=== PATIENT | female | born 1965 | race Caucasian/White ===

== ENCOUNTER 2018-05-24 08:16 | Outpatient (CLI) | payer OTHER, SELFPAY ==
--- NOTE | 2018-05-24 08:19 | DI.RAD_ITS ---
SYMPTOM/DIAGNOSIS: CERVICALGIA, M54.2, NECK PAIN CERVICAL SPINE: Odontoid, AP, lateral and bilateral oblique views. There are no priors for comparison. The odontoid is intact. There is mild reversal of the normal cervical lordosis centered at the C 3-4 level. There is disc space narrowing from C 3-4 through C 5-6. Endplate osteophytes are present throughout the cervical spine. There is moderate narrowing of the neural foramen on the right at C 3-4 and C 6-7 and mild narrowing at C 4-5 and C 5-6. On the left, there is mild neural foraminal narrowing at C 4-5 and C 6-7 with moderate neural foraminal encroachment at C 5-6. No acute fractures or subluxations are seen. The bones are normally mineralized. IMPRESSION: Moderately severe degenerative changes in the cervical spine.
== END 2018-05-24 08:36 ==
DX: M54.2 Cervicalgia (principal); M50.321 Other cervical disc degeneration at C4-C5 level; M50.322 Other cervical disc degeneration at C5-C6 level; M50.323 Other cervical disc degeneration at C6-C7 level
CPT/HCPCS: 72050

== ENCOUNTER 2018-10-20 19:43 | Outpatient (REF) | payer OTHER, SELFPAY | END 2018-10-20 20:03 | LOC: LBN 19:43 | DX: N89.8 Other specified noninflammatory disorders of vagina (principal) | CPT/HCPCS: 87480; 87510; 87660 ==

== ENCOUNTER 2018-12-16 00:27 | Outpatient (CLI) | payer OTHER, SELFPAY ==
--- NOTE | 2018-12-16 12:12 | DI.MAMMO_ITS ---
SYMPTOMS/DIAGNOSIS: SCREENING, Z12.31 MAMMOGRAM: Mammograms were interpreted according to the usual protocol including computer analysis with CAD system, tomosynthesis and C view imaging. The breast tissue is largely composed of fatty tissue. There is no mass. There are no suspicious calcifications. A biopsy marker is identified in the inferolateral portion of the left breast. SUMMARY: No evidence of malignancy, Category I, yearly screening mammography is recommended. Breast density Category B. SA ASSESSMENT OF FINDINGS: Negative. Category 1. Patient will receive a letter notifying them of these results. BI-RADS category B. There are scattered areas of fibroglandular density.
[2018-12-16 13:56] LABS: ALT 44 U/L (12-78); AST 24 U/L (15-37); Albumin 3.9 g/dL (3.4-5.0); Alkaline Phosphatase 92 U/L (46-116); BUN 10 mg/dL (7-18); Bilirubin, Total 0.9 mg/dL (0.2-1.0); CREATININE 0.66 mg/dL (0.55-1.02); Calcium 9.4 mg/dL (8.5-10.1); Calculated LDL 144 mg/dL; Chloride 102 mmol/L (98-107); Cholesterol 213 mg/dL (50-200); Glucose 86 mg/dL (70-100); HDL Cholesterol 54 mg/dL (40-60); Potassium 4.2 mmol/L (3.5-5.1); Sodium 139 mmol/L (136-145); TSH (W/Ref FT4) 1.56 uIU/mL (0.36-3.74); Total Protein 7.3 g/dL (6.4-8.2); Triglyceride 79 mg/dL (30-150)
== END 2018-12-16 00:47 ==
DX: F17.200 Nicotine dependence, unspecified, uncomplicated (principal); F41.9 Anxiety disorder, unspecified; I10 Essential (primary) hypertension; J45.909 Unspecified asthma, uncomplicated; K44.9 Diaphragmatic hernia without obstruction or gangrene; M54.2 Cervicalgia; R63.8 Other symptoms and signs concerning food and fluid intake; Z00.00 Encounter for general adult medical examination without abnormal findings; Z12.31 Encounter for screening mammogram for malignant neoplasm of breast; B02.9 Zoster without complications; G40.909 Epilepsy, unspecified, not intractable, without status epilepticus; M79.7 Fibromyalgia; Z13.220 Encounter for screening for lipoid disorders; R53.83 Other fatigue
CPT/HCPCS: 36415; 77063; 77067; 80053; 80061; 83721; 84443

== ENCOUNTER 2019-11-11 01:45 | Outpatient (CLI) | payer OTHER, SELFPAY ==
[2019-11-11 09:43] LABS: ALT 40 U/L (14-59); AST 25 U/L (15-37); Albumin 3.8 g/dL (3.4-5.0); Alkaline Phosphatase 101 U/L (46-116); Anion Gap 8.5 mmol/L (3-11); BUN 7 mg/dL (7-18); Bilirubin, Total 0.5 mg/dL (0.2-1.0); CO2 30.5 mmol/L (21.0-32.0); CREATININE 0.78 mg/dL (0.55-1.02); Calcium 9.6 mg/dL (8.5-10.1); Calculated LDL 117 mg/dL (<100); Chloride 99 mmol/L (98-107); Cholesterol 194 mg/dL (<200); Glucose 110 mg/dL (74-106); HDL Cholesterol 38 mg/dL (40-60); Potassium 4.5 mmol/L (3.5-5.1); Sodium 138 mmol/L (136-145); Total Protein 7.4 g/dL (6.4-8.2); Triglyceride 197 mg/dL (<150)
== END 2019-11-11 02:05 ==
DX: F17.200 Nicotine dependence, unspecified, uncomplicated (principal); F41.9 Anxiety disorder, unspecified; I10 Essential (primary) hypertension; R63.8 Other symptoms and signs concerning food and fluid intake
CPT/HCPCS: 36415; 80053; 80061

== ENCOUNTER 2019-12-26 09:18 | Outpatient (CLI) | payer OTHER, SELFPAY ==
[2019-12-27 22:12] LABS: SARS-CoV-2 RNA Undetected (Undetected); SARS-CoV-2 Specimen Source Nasopharynx
== END 2019-12-26 09:38 ==
DX: Z11.59 Encounter for screening for other viral diseases (principal)
CPT/HCPCS: U0003

== ENCOUNTER 2020-01-10 01:00 | Outpatient (CLI) | payer OTHER, SELFPAY ==
--- NOTE | 2020-01-10 06:30 | DI.MAMMO_ITS ---
EXAM: MG MAMMO SCREENING CLINICAL HISTORY: screening,Z12.39 TECHNIQUE: Mammograms were interpreted according to the usual protocol including computer analysis w [employer] CAD system, tomosynthesis and C-view imaging. COMPARISON: FINDINGS: The breasts are of moderate density with fairly symmetrical distribution of fibroglandular tissue. N o dominant mass or clumped microcalcification is identified in either breast. The current examinatio n is compared with prior examinations including December 2018 and there has been no gross interval thompson ge in appearance in comparison with the prior studies. IMPRESSION: No specific evidence of malignancy at this time. Routine screening examinations are suggested at yea rly intervals in this age group according to the ACS ACR guidelines. Category: BI-RADS Cat 1 - Negative Breast Density - Category B - Scattered areas of fibroglandular density
== END 2020-01-10 01:20 ==
DX: Z12.31 Encounter for screening mammogram for malignant neoplasm of breast (principal); R92.2 Inconclusive mammogram
CPT/HCPCS: 77063; 77067

== ENCOUNTER 2020-02-06 09:16 | Day surgery (SDC) | payer OTHER, SELFPAY ==
--- NOTE | 2020-02-06 07:02 | COLE_ITS ---
Date of service: 02/06/20 Time of Service: 10:13 Colonoscopy Report Date of procedure: 02/06/20 Pre-op diagnosis general: Hx of colon polyps Post-op diagnosis procedure note: other (polyps) Procedure: Colonoscopy with polypectomy Surgeon: Priya Mark Anesthesia proc note operative: other (General/ASA 3/Hunter Foy CRNA) Estimated blood loss (mL): 3 Pathology: other (Aascending, transverse x2, descending x2, sigmoid x2 and rectal polyps x2) Complications: None Disposition: same day Indications: The patient is here for Colonoscopy pre-op. Her last screening was in 2014, which was remarkable for tubular adenoma. She reports a family history of colon cancer in her father and brother.She has no family history of colon cancer. She has not had any bowel habit changes. -Discussed colonoscopy bowel prep as well as the procedure. Discussed possible complications of the procedure to include bleeding, pain, perforation, missed small lesion/polyp, sore throat, aspiration and adverse reaction to the medications. Questions were answered to patient?s satisfaction. No guarantees were implied or given. Prep: Miralax/Dulcolax Procedure Start Time: :13 Procedure End Time: 10:43 Retraction Time: 23 minutes Findings: multiple small polyps Procedure Description: After informed consent was obtained the patient was taken to the procedure room and placed in a left decubitous position. Monitors were applied and a time out was done. The patients name, date of , procedure, allergies to medications and metal in their body was reviewed. The patient was then sedated. Once sedated and comfortable a rectal exam was done. E xternal exam was normal. Internal exam revealed a normal sphincter tone and no palpable masses. The scope was then introduced and retro-flexed. No internal hemorrhoids were identified. The scope was then advanced to the cecum without difficulty. The ileocecal valve and appendiceal orifice were identified. The prep was adequate. The scope was then slowly retracted over 23 minutes back into the rectum. Polyps were removed with cold forceps in the ascending colon x1, Transverse colon x2, descending colon x2, sigmoid colon x2. There were no diverticula noted. The scope was removed and the patient was woken up and taken back to Same day surgery in stable condition. The patient tolerated the procedure well and there were no immediate complications. Follow up: The patient should follow up in 3-5 years unless they develop changes in bowel habits or other new gastrointestinal complaints.
--- NOTE | 2020-02-06 07:04 | W.PM.DSUDISC ---
Discharge Plan Disposition Patient Disposition: HOME Condition: Good Discharge Details Reason For Visit: Colonoscopy Attending Provider: Priya Mark Primary Care Provider: Cammie Barry Home Meds and New Rx's Prescriptions: Continued loratadine 10 mg tablet 10 mg PO DAILY Qty: 90 RF: 3 albuterol sulfate [ProAir HFA] 90 mcg/actuation HFA aerosol inhaler 2 puff Inhalation Q6H PRN Qty: 17 RF: 3 gabapentin 800 mg tablet 800 mg PO QHS Qty: 60 RF: 5 metoprolol succinate 100 mg tablet extended release 24 hr 100 mg PO QHS Qty: 90 RF: 3 Advair HFA 115-21 mcg/actuation HFA aerosol inhaler 2 puff Inhalation BID Qty: 24 RF: 4 fluoxetine 40 mg capsule 40 mg PO DAILY Qty: 90 RF: 3 hydrochlorothiazide 25 mg tablet 25 mg PO DAILY Qty: 90 RF: 3 metoprolol succinate 50 mg tablet extended release 24 hr 50 mg PO DAILY Qty: 90 RF: 3 trazodone 50 mg tablet 25 mg PO HS PRN Qty: 45 RF: 3 Discontinued polyethylene glycol 3350 17 gram/dose powder 238 g PO ONCE Qty: 238 RF: 0 bisacodyl [Dulcolax (bisacodyl)] 5 mg tablet,delayed release (DR/EC) 5 mg PO ONCE Qty: 4 RF: 0 Discharge Instructions Instructions: Colorectal Polyps (DC) Additional Instructions: Findings: 9 polyps were removed Follow up: 3-5 years Please call if you develop: fevers >101.5 Nausea or Vomiting Abdominal pain that is not transient DAY SURGERY UNIT POST ENDOSCOPY INSTRUCTIONS 1. Because there will be medication in your system for the next 24 hours, you may feel a little sleepy. Your coordination will be affected. Therefore: a. Do not drive or operate dangerous equipment for 24 hours. b. Do not drink alcohol beverages for 24 hours (not even beer). c. Plan to go home and rest for the day. 2. Generally there are no restrictions on your activity after a day or so has gone by, but you may feel a bit fatigued for a few days. 3 After you arrive home you may have a light meal and return to a normal diet as you can tolerate it without feeling sick to your stomach. 4. After surgery, you may feel pain or discomfort. This should be only transient, but if it persists please contact your doctor. 5. If there are any questions regarding the findings of your procedure, please feel free to contact your doctor. 6. If you are unable to contact your doctor with a problem, contact the hospital at [phone]. 7. Continue all your regular medications unless directed otherwise. I understand the above instructions and have no questions. Signature of Patient or Responsible Adult Escort Date/Time Name of Responsible Adult Escort Signature of Nurse Date/Time Activity:: Activity as Tolerated Diet:: As Tolerated Discharge Orders Discharge Orders: Discharge Order (Routine); Ordered 02/06/20 Ordered By: Priya Mark
[2020-02-06 09:20] VITALS: BP 171/95; PULSE 59; RESP 16; TEMP 36.4; O2SAT 95
[2020-02-06] MEDS: Lactated Ringers 1,000 ML 80 ML IV (09:50)
--- NOTE | 2020-02-06 10:24 | BOWEL_PTH ---
PATIENT: Yaz Michel LOC: [facility] U#:[id number] AGE/SX: 54/F ROOM: RE02/06/[address]: Priya Mark MD : 1965 BED: DIS: 02/06/2020 SPEC #: [id number] RECD: 02/06/20 12:35 STATUS: HENRY REQ #: [id number] ANDRES: 02/06/20 10:[address]: Priya Mark DEPT: Surgical Specimen RECD BY: Cinthia Hair ENTERED: 02/06/20 12:37 SP TYPE: Bowel OTHR DR: Cammie Barry APRN Tissues: 1 - BIOPSY BOWEL 2 - BIOPSY BOWEL 3 - BIOPSY BOWEL 4 - BIOPSY BOWEL 5 - BIOPSY BOWEL Procedures: GROSS AND MICRO LEVEL 4 Comments: [id number]
[2020-02-06 11:20] VITALS: BP 149/85; PULSE 60; RESP 18; TEMP 36; O2SAT 99
== END 2020-02-06 11:30 | disposition home or self-care (01) ==
PROVIDERS: Visit Provider Surgery
PROC: 0DJD8ZZ Inspection of Lower Intestinal Tract, Via Natural or Artificial Opening Endoscopic (ICD-10-PCS; CPT 45378; principal; 2020-02-06 10:30)
DX: Z12.11 Encounter for screening for malignant neoplasm of colon (principal); Z86.010 Personal history of colon polyps; D12.2 Benign neoplasm of ascending colon; D12.3 Benign neoplasm of transverse colon; K62.1 Rectal polyp; K63.5 Polyp of colon
CPT/HCPCS: 45380; 88305; J2001; J2704

== ENCOUNTER 2021-01-01 16:16 | Outpatient (REF) | payer OTHER, SELFPAY ==
--- NOTE | 2021-01-01 15:30 | PAPFT_PTH ---
PATIENT: Yaz Michel LOC: [facility] U#:[id number] AGE/SX: 55/F ROOM: RE01/01/[address]: Cammie Barry APRN : 1965 BED: DIS: 01/01/2021 SPEC #: [id number] RECD: 01/02/21 12:52 STATUS: HENRY REMilton #: [id number] ANDRES: 01/01/21 15:[address]: Cammie Barry DEPT: [facility] Cytology RECD BY: Cinthia Hair Tissues: 1 - CX/ENDOCX FOR PAP SMEARS Procedures: PAP THIN PREP/UVM Screening HPV DNA PROBE Comments: [id number] (CHLAMYDIA/GC)
[2021-01-03 15:08] LABS: Chlamydia Result Negative (Negative); GC Result Negative (Negative)
== END 2021-01-01 16:17 | disposition home or self-care (01) ==
LOC: LBN 16:16
DX: Z12.4 Encounter for screening for malignant neoplasm of cervix (principal); Z11.3 Encounter for screening for infections with a predominantly sexual mode of transmission; Z11.51 Encounter for screening for human papillomavirus (HPV)
CPT/HCPCS: 87491; 87591; 88142; 87624

== ENCOUNTER 2021-11-19 18:22 | Outpatient (REF) | payer OTHER, SELFPAY ==
--- NOTE | 2021-11-19 15:20 | PAPFT_PTH ---
PATIENT: Yaz Michel LOC: [facility] U#:[id number] AGE/SX: 56/F ROOM: RE11/19/[address]: Camime Barry APRN : 1965 BED: DIS: 11/19/2021 SPEC #: [id number] RECD: 11/20/21 08:48 STATUS: HENRY [place] #: [id number] ANDRES: 11/19/21 15:[address]: Cammie Barry DEPT: [facility] Cytology RECD BY: Pauline Harrison Tissues: 1 - CX/ENDOCX FOR PAP SMEARS Procedures: PAP THIN PREP/UVM Screening HPV DNA PROBE Comments: [id number]
== END 2021-11-19 18:23 | disposition home or self-care (01) ==
LOC: LBN 18:22
DX: Z12.4 Encounter for screening for malignant neoplasm of cervix (principal); Z11.51 Encounter for screening for human papillomavirus (HPV)
CPT/HCPCS: 88142; 87624

== ENCOUNTER 2021-12-11 03:50 | Outpatient (CLI) | payer OTHER, SELFPAY ==
[2021-12-11 12:47] LABS: ALT 31 U/L (14-59); AST 21 U/L (15-37); Albumin 3.7 g/dL (3.4-5.0); Alkaline Phosphatase 91 U/L (46-116); Anion Gap 7.7 mmol/L (3-11); BUN 14 mg/dL (7-18); Bilirubin, Total 0.5 mg/dL (0.2-1.0); CO2 31.3 mmol/L (21.0-32.0); CREATININE 0.8 mg/dL (0.55-1.02); Calcium 9.4 mg/dL (8.5-10.1); Calculated LDL 132 mg/dL (<100); Chloride 100 mmol/L (98-107); Cholesterol 196 mg/dL (<200); Glucose 101 mg/dL (74-106); HDL Cholesterol 52 mg/dL (40-60); Potassium 3.9 mmol/L (3.5-5.1); Sodium 139 mmol/L (136-145); Total Protein 7.8 g/dL (6.4-8.2); Triglyceride 63 mg/dL (<150)
== END 2021-12-11 03:51 | disposition home or self-care (01) ==
LOC: LOS 03:50
DX: Z00.00 Encounter for general adult medical examination without abnormal findings (principal); E78.5 Hyperlipidemia, unspecified; I10 Essential (primary) hypertension; I47.1 Supraventricular tachycardia; R73.01 Impaired fasting glucose; F41.8 Other specified anxiety disorders
CPT/HCPCS: 36415; 80053; 80061; 84443

== ENCOUNTER 2022-12-16 03:41 | Outpatient (CLI) | payer SELFPAY ==
--- NOTE | 2022-12-16 07:00 | DI.CTLCSR_ITS ---
Exam(s) CT CHEST LUNG CANCER SCREEN EXAM: CT CHEST LUNG CANCER SCREEN CLINICAL HISTORY: Screening for lung cancer, CURRENT SMOKER, F17.200 TECHNIQUE: Imaging Protocol: Axial computed tomography images with coronal and sagittal reformatted images were created and reviewed. Low dose screening protocol. COMPARISON: CT CHEST FOR PULMONARY EMBOLUS from 11/19/2010 FINDINGS: Tracheobronchial tree: No bronchiectasis or mucus plugging.. Mediastinum and Susan: No dominant adenopathy or fluid collection. Pulmonary parenchyma: Scattered areas of atelectasis and/or scarring. No consolidation or dominant m easurable mass. Mild emphysematous changes. Lung Nodules: None. Pleura: No effusion. No pneumothorax. Heart: The heart is not dilated. Mild coronary artery calcifications are seen. Aorta: Thoracic aorta non-dilated.Minimal atherosclerotic changes. Upper abdomen: Unremarkable. Bones: Minimal compression fracture of the superior endplate of T3. Degenerative disc changes throug hout with prominent endplate osteophytes. Soft Tissues: Unremarkable. IMPRESSION: No suspicious pulmonary nodules. Lung RADS Cat 1 - Negative: No nodules and definitely benign nodules Lung-RADS 1.0 CATEGORIES: Category 0 - Prior chest CT exam(s) being located for comparison. Category 1 - Annual screening in 12 months. No nodules or definitely benign nodules. Category 2 - Annual screening in 12 months. Benign appearance. Nodules with low likelihood of becomin g active cancer. Category 3 - 6-month follow-up. Probably benign. Short-term follow-up suggested. Nodules with low lik elihood of becoming active cancer. Category 4A - 3-month follow-up and CT/PET if >8 mm in size. Suspicious finding. Findings which requi re additional testing. Category 4B - Findings which require additional testing and tissue sampling. Category 4X - Category 3 or 4 nodules with additional features or imaging findings that increases the suspicion of malignancy. Modifier S- Potentially clinically significant findings (non lung cancer) RADIATION DOSE DELIVERED: 77.37mGy.cm Total DLP DATA REPOSITORY: All CT scans at this facility are submitted to the National Radiology Data Registry (NRDR) Dose Index Registry (DIR) with the [employer] (ACR). RADIATION OPTIMIZATION: All CT scans at this facility use at least one of these dose optimization te chniques: automated exposure control; mA and/or kV adjustment per patient size (includes targeted exa ms where dose is matched to clinical indication); or iterative reconstruction.
--- NOTE | 2022-12-16 08:05 | DI.MAMMO_ITS ---
Exam(s) MAMMO SCREENING EXAM: MAMMO SCREENING CLINICAL HISTORY: screening, Z12.39 TECHNIQUE: Mammograms were interpreted according to the usual protocol including computer analysis w [employer] CAD system, tomosynthesis and C-view imaging. COMPARISON: 2014 through 2019 FINDINGS: The breasts are composed of scattered fibroglandular densities, Breast Density category B. No suspicious masses or suspicious microcalcifications are seen. No skin thickening or abnormal axillary lymph nodes are seen. A biopsy marker clip is noted in the l eft breast. In the lateral, central left breast, there is a new or increasing nodule. Spot compression views and ultrasound requested further evaluation. There has been no change in the appearance of the right br east. IMPRESSION: BI-RADS Category 0 - Assessment Incomplete: Need additional imaging evaluation Breast Density - Category B, scattered fibroglandular densities. A negative radiographic report should not delay biopsy if a dominant or clinically suspicious mass is present. Up to ten percent of cancers are not identified on mammography. A negative report may reinforce clinical impression. Adenosis and dense breasts may obscure an underlying neoplasm. False positive reports average 6 to 10%. Patient will receive a letter notifying them of these results.
== END 2022-12-16 04:01 ==
PROVIDERS: PCP Nurse Practitioner Family; Visit Provider Nurse Practitioner Family
DX: Z12.39 Encounter for other screening for malignant neoplasm of breast (principal); F17.210 Nicotine dependence, cigarettes, uncomplicated; Z12.2 Encounter for screening for malignant neoplasm of respiratory organs
CPT/HCPCS: 71271; 77063; 77067

== ENCOUNTER → 2022-12-23 03:05 | Outpatient (CLI) | payer SELFPAY ==
--- NOTE | 2022-12-23 | DI.MAMMO_ITS ---
Exam(s) MG MAMMO SCREEN CALL BACK UNI US BREAST LT LIMITED EXAM: MG MAMMO SCREEN CALL BACK UNI and U/S breast LT limited CLINICAL HISTORY: F/U MAMMO, NEW/INCREASING NODULE LT BREAST. TECHNIQUE: Craniocaudal and mediolateral oblique Full Field Digital Mammography views of the left br east with Computer Aided Diagnosis followed by Tomosynthesis and left breast ultrasound. COMPARISON: Comparison is made with prior examinations. FINDINGS: Mammography/Tomosynthesis: Masses/Architectural Distortion: There again seen a couple of nodular opacities in the upper outer qu adrant of the left breast. No associated microcalcifications or spiculation is seen. Several of the se are unchanged compared to the prior examination. Microcalcifictions: No suspicious pleomorphic-type are seen. Skin Thickening/Nipple Retraction: None. Limited left breast US: Echotexture: Normal appearance of the glandular tissue. Shadowing: No suspicious foci. Cyst: None. Solid lesions: None seen. Ductal dilation: None. IMPRESSION: 1. No definite evidence of malignancy is noted. 2. A follow-up mammogram in 6 months is recommended for re-evaluation. 3. The findings were discussed with the patient on the date of the examination. BI-RADS Category 3 - 6 month - Probably Benign Finding: Recommend follow-up imaging in 6 months Breast Density - Category B - Scattered areas of fibroglandular density Breast density Category C or D implies that the patient has dense breast tissue. Dense breast tissue can make it harder to find cancer on a mammogram. Dense breast tissue is also associated with an incr eased risk of breast cancer. This information about the result of the mammogram report was provided to the patient to raise their awareness. Use this report when you speak with the patient about their risks for breast cancer, which includes their family history. At that time, you may recommend additional screening tests (Ultrasoun d or MRI) as these tests may add significant information. A negative radiographic report should not delay biopsy if a dominant or clinically suspicious mass is present. Up to ten percent of cancers are not identified on mammography. A negative report may reinforce clinical impression. Adenosis and dense breasts may obscure an underlying neoplasm. False positive reports average 6 to 10%. Patient will receive a letter notifying them of these results.
== END ==
PROVIDERS: PCP Nurse Practitioner Family; Visit Provider Family Medicine
DX: Z12.31 Encounter for screening mammogram for malignant neoplasm of breast (principal); R92.8 Other abnormal and inconclusive findings on diagnostic imaging of breast
CPT/HCPCS: 76642; 77063; 77067

== ENCOUNTER 2023-06-04 21:35 | Emergency (ER) | payer SELFPAY ==
[2023-06-04] VITALS (18 sets, daily range): BP systolic 110–173; BP diastolic 70–100; PULSE 83–93; RESP 14–25; TEMP 37–38.1; O2SAT 87–98
--- NOTE | 2023-06-04 21:45 | RT.EKG_ITS ---
APPROVED REPORT Exam: Resting ECG Reason for Exam: short of breath Patient Location: E HR:83 bpm ECG Measurements Heart Rate [address] 159 P 67 QRSd 139 QRS -16 QT 407 T 114 QTc 478 Conclusion Sinus rhythm normal axis LBBB
--- NOTE | 2023-06-04 21:45 | DI.RAD_ITS ---
Exam(s) XR CHEST 2V PA LATERAL EXAM: XR CHEST 2V PA LATERAL CLINICAL HISTORY: sob, fever. TECHNIQUE: 2D digital imaging was performed. COMPARISON: CT CT CHEST LUNG CANCER SCREEN from 12/16/2022 FINDINGS: 2 views: Heart size is normal. The mediastinum is not widened. Lungs are clear. No infiltrates nor pleural effusions. IMPRESSION: No acute pulmonary findings. DATA REPOSITORY: RADIATION DOSE DELIVERED:
--- NOTE | 2023-06-04 21:55 | W.ED.GENAD ---
HPI General Mode of arrival: ambulatory. Date/Time Provider Initiated Documentation: 06/04/23 21:52. Limitations to Documentation: no limitations. Information obtained by: patient. HPI Narrative: This is a 58-year-old female patient with history of tobacco abuse ongoing obstructive sleep apnea not compliant with CPAP, previous home oxygen which she no longer has due to cost who presents to the emergency department for evaluation of shortness of breath cough body aches and chills that have been ongoing for the past 2 weeks. She states her symptoms have waxed and waned but today feels they have worsened again. She is using her rescue inhaler. Related Data Home Medications Medication Instructions Recorded Confirmed estradiol 0.01% (0.1 mg/gram) 1 g vaginal DAILY #42.5 grams 06/06/22 11/24/22 vaginal cream fluoxetine 40 mg capsule 40 mg PO DAILY #90 tab-caps 06/06/22 11/24/22 gabapentin 800 mg tablet 800 mg PO QHS #90 tab-caps 06/06/22 11/24/22 hydrochlorothiazide 12.5 mg tablet 12.5 mg PO DAILY #90 tab-caps 06/06/22 11/24/22 metoprolol succinate 100 mg 100 mg PO QHS #90 tabs 06/06/22 11/24/22 tablet,extended release 24 hr trazodone 50 mg tablet 25 mg (1/2 x 50 mg) PO HS PRN #45 06/06/22 11/24/22 tab-caps albuterol sulfate 90 mcg/actuation See Rx Instructions .Route 12/17/22 aerosol inhaler .COMPLEX #17 grams Inhaler, Assist Devices [Pocket 1 ea miscellaneous DIRECTED ##0 06/04/23 Chamber] benzonatate 100 mg capsule 100 mg PO TID PRN #14 caps 06/04/23 budesonide-formoterol HFA 80 2 puff inhalation BID #0 grams 06/04/23 mcg-4.5 mcg/actuation aerosol inhaler (Symbicort) prednisone 20 mg tablet 40 mg (2 x 20 mg) PO DAILY #10 tabs 06/04/23 Previous Rx's Medication Instructions Recorded estradiol 0.01% (0.1 mg/gram) 1 g vaginal DAILY #42.5 grams 06/06/22 vaginal cream fluoxetine 40 mg capsule 40 mg PO DAILY #90 tab-caps 06/06/22 gabapentin 800 mg tablet 800 mg PO QHS #90 tab-caps 06/06/22 hydrochlorothiazide 12.5 mg tablet 12.5 mg PO DAILY #90 tab-caps 06/06/22 metoprolol succinate 100 mg 100 mg PO QHS #90 tabs 06/06/22 tablet,extended release 24 hr trazodone 50 mg tablet 25 mg (1/2 x 50 mg) PO HS PRN #45 06/06/22 tab-caps albuterol sulfate 90 mcg/actuation See Rx Instructions .Route 12/17/22 aerosol inhaler .COMPLEX #17 grams Inhaler, Assist Devices [Pocket 1 ea miscellaneous DIRECTED ##0 06/04/23 Chamber] benzonatate 100 mg capsule 100 mg PO TID PRN #14 caps 06/04/23 budesonide-formoterol HFA 80 2 puff inhalation BID #0 grams 06/04/23 mcg-4.5 mcg/actuation aerosol inhaler (Symbicort) prednisone 20 mg tablet 40 mg (2 x 20 mg) PO DAILY #10 tabs 06/04/23 Allergies Allergy/AdvReac Type Severity Reaction Status Date / Time Penicillins Allergy Intermediate THROAT Verified 11/24/22 13:45 TIGHTNES iron AdvReac Nausea Verified 11/24/22 13:45 shellfish Allergy Severe Anaphylaxis Uncoded 11/24/22 13:47 General Stated Complaint: SOB IVETTE: 3 Review of Systems All systems reviewed & are unremarkable except as noted in HPI and below Exam Narrative Exam Narrative: Overweight chronically ill-appearing female older than stated age. Head is atraumatic oral mucosa is slightly dry no exudate neck is supple with no JVD eyes nonicteric noninjected. Respirations slightly labored with activity does have a dry hacking cough breath sounds with expiratory wheeze no rhonchi appreciated. Fair air exchange but diminished. Cardiovascular regular rate and rhythm her abdomen benign her extremities are without edema she has no unilateral edema or calf pain. Moves all extremities well. Her skin is pink warm dry well-perfused there is no rashes or lesions noted. Course Vital Signs Vital signs: Vital Signs Temperature 38.1 C H 06/04/23 21:43 Pulse 91 H 06/04/23 21:43 Respiratory Rate 22 06/04/23 21:43 Blood Pressure 173/100 H 06/04/23 21:43 Pulse Oximetry 87 L 01/18/24 21:43 Temperature 38.1 C H 06/04/23 21:43 Pulse 91 H 06/04/23 21:43 Respiratory Rate 22 06/04/23 21:46 Respiratory Effort Short of Breath 06/04/23 21:46 Respiratory Depth Deep 06/04/23 21:46 Respiratory Pattern Tachypnea 06/04/23 21:46 Blood Pressure 173/100 H 06/04/23 21:43 Pulse Oximetry 87 L 06/04/23 21:43 Oxygen Delivery Method Room Air 06/04/23 21:43 Oxygen Flow Rate 0 06/04/23 21:43 Pain Level 1 06/04/23 21:43 Medical Decision Making This is a 58-year-old female who presents to the emergency department for evaluation of ongoing cough and shortness of breath that has been going on for over 2 weeks. She was diagnosed previously with COVID at the onset of her symptoms. She states that her symptoms have waxed and waned. She is unable to have access to CPAP as it was damaged and she has not replaced. She states she also was prescribed oxygen which she can no longer afford. Her O2 sats with activity on arrival to the department on room air were 87 to 88%. She received a DuoNeb updraft with improvement in her symptoms and oxygenation. She is oxygenating 89 to 91% on room air. She is given a another nebulizer with albuterol with further improvement in her symptoms. She was also given prednisone 60 mg orally. Her chest x-ray showed no evidence of acute infiltrates. We did discuss Tamiflu as her viral swab was positive for influenza but she states she cannot really determine when symptoms definitely changed as they have waxed and waned for about a 2-week. She therefore would not qualify for Tamiflu and is in agreement with this. She states that her breathing has improved markedly. She remains hemodynamically stable and would like to be discharged to home to trial outpatient treatment. She will be given a prednisone burst. She has also been dispensed Symbicort to use 2 puffs twice daily in addition to her rescue inhaler if needed. I will also prescribe Tessalon Perles to use for her persistent dry cough. Also dispensed 1 dose of guaifenesin with codeine to take tonight prior to bedtime. She is agreeable to discharge to home with outpatient follow-up and will follow-up with her primary care provider or return here sooner for new or worsening symptoms.. Imaging Data Radiologic Study: Imaging: X-Ray Radiologist's impression: Exam(s) PROCEDURE INFORMATION: Exam: XR Chest Exam date and time: 06/04/2023 10:25 PM Age: 58 years old Clinical indication: Fever and shortness of breath TECHNIQUE: Imaging protocol: Radiologic exam of the chest. Views: 2 views. COMPARISON: CT CHEST LUNG CANCER SCREEN 12/16/2022 7:33 AM FINDINGS: Lungs: Unremarkable. No consolidation. Pleural spaces: Unremarkable. No pleural effusion. No pneumothorax. Heart/Mediastinum: Unremarkable. No cardiomegaly. Bones/joints: Unremarkable. IMPRESSION: No acute findings. Dictated and Authenticated by: Ryan Sen MD. Quality:SDOH Health Related Social Needs: No Data to Display PFSH All Active Problems (Updated 06/04/23 @ 23:10 by Marii Mittal NP) Acute exacerbation of chronic obstructive pulmonary disease (Acute) Influenza A (Acute) Vaginal atrophy (Chronic) Started Estridiol 11/2021 Insomnia disorder (Acute) Elevated fasting glucose (Acute) Encounter for smoking cessation counseling (Acute) Tubular adenoma of colon (Acute) Inflammatory polyps of colon (Acute) Hyperplastic colon polyp (Acute) Encounter for annual physical exam (Acute) Abnormal mammography (Acute) Status post breast biopsy (Chronic) MORRIS on CPAP (Chronic) Urine, incontinence, stress female (Chronic 10/23/14) Tubular adenoma (Acute) 01/05/15; DR. 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) Essential hypertension (Chronic 07/30/16) Chronic daily headache (Chronic 11/10/17) Cervical pain (neck) (Chronic 01/07/18) Asthma (Acute 07/09/12) COPD-smokes Anxiety (Acute 10/20/13) Anisocoria (Acute 07/15/08) Medical History Excessive bleeding in premenopausal period (09/27/12) Obesity (BMI 30-39.9) Uterine leiomyoma Surgical History Biopsy of breast section X 2 Colonoscopy - MAC (01/05/15) DR.TERRY FERRARI EGD - MAC (01/05/15) DR.TERRY FERRARI History of section Ligation of fallopian tube Family History Mother , 72 Personal history of malignant neoplasm Cancer Father , 70 Diabetes Essential hypertension Heart disease Hyperlipidemia Stroke Colon cancer Substance abuse Sister Hypertension High cholesterol Brother Bone cancer Alcohol abuse Depression Hyperlipidemia Brother Asthma High cholesterol Hypertension Son Essential hypertension Depression Asthma High cholesterol Hypertension Substance abuse Daughter Essential hypertension Hypertension Brother Heart disease High cholesterol Hypertension Maternal Grandfather , 60 Stroke Hypertension High cholesterol Heart disease Paternal Grandfather , 80 Alcohol abuse High cholesterol Hypertension Maternal Grandmother , 80 High cholesterol Hypertension Paternal Grandmother , 80 High cholesterol Hypertension Social History (Updated 11/26/22 @ 12:23 by Bryanna Cardona) Smoking/Tobacco Use Status: Current every day Tobacco Type: cigars Quit status: has quit before Second Hand Exposure: Yes Smoking risk assessment performed?: Yes Alcohol Intake: never Counseling given: No Drug use: Never Substance use type: does not use Caregiver/Support person: No Household members: spouse Housing: house Communication Needs: None Do you need help understanding health information?: Rarely Pets and animals: Yes Pets and animals: cat(s) Sexually active: No Do you think of yourself as: straight/heterosexual Current gender identity: female What is your relationship status?: How often do you talk on the phone with friends or family?: decline to answer How often do you get together with friends or relatives?: twice per week How often do you attend restoration or yazidi services?: decline to answer Do you belong to any clubs or organized social groups?: no Panel score (0-1 are the most socially isolated patients): 1 What type of physical activity do you participate in: walking Duration: 15-30 minutes/day Frequency: 1-2 times per week Balbina/Catholic: No preference Special balbina needs: No Seatbelt use: always Drive intox or ride w/intox ambulance driver paramedic: No Do you feel safe at home: Yes Do you feel safe in your relationship?: Yes Discharge Plan Disposition Patient Disposition: Home Condition: Improving Discharge Details Clinical Impression: Influenza A, Acute exacerbation of chronic obstructive pulmonary disease Primary Care Provider: Jarret Steward ED Provider: Marii Mittal Home Meds and New Rx's Prescriptions: New budesonide-formoterol [Symbicort] 80-4.5 mcg/actuation Hfa Aerosol Inhaler 2 puff inhalation BID Qty: 0 0RF Inhaler, Assist Devices [Pocket Chamber] 1 ea miscellaneous DIRECTED Qty: 0 0RF prednisone 20 mg tablet 40 mg PO DAILY Qty: 10 0RF benzonatate 100 mg capsule 100 mg PO TID PRNQty: 14 0RF Continued estradiol 0.01 % (0.1 mg/gram) cream 1 g vaginal DAILY Qty: 42.5 6RF Rx Instructions: for 7 days, then 2x per week. fluoxetine 40 mg capsule 40 mg PO DAILY Qty: 90 3RF gabapentin 800 mg tablet 800 mg PO QHS Qty: 90 3RF hydrochlorothiazide 12.5 mg tablet 12.5 mg PO DAILY Qty: 90 3RF metoprolol succinate 100 mg tablet extended release 24 hr 100 mg PO QHS Qty: 90 3RF Rx Instructions: Take 100mg at at bedtime trazodone 50 mg tablet 25 mg PO HS PRN Qty: 45 3RF albuterol sulfate 90 mcg/actuation HFA aerosol inhaler See Rx Instructions .ROUTE .COMPLEX Qty: 17 3RF Dose Instruction: INHALE 2 PUFFS EVERY 6 HOURS NEEDED Rx Instructions: INHALE 2 PUFFS EVERY 6 HOURS NEEDED Discharge Instructions Instructions: How to Stop Smoking (ED), COPD (Chronic Obstructive Pulmonary Disease) (ED), H1N1 Influenza (ED) Additional Instructions: take prednisone and inhaler as prescribed. stop smoking, please see resources provided and discuss with primary care provider. Referrals: Jarret Steward, CITIZENSHIP INSTRUCTOR [Primary Care Provider] - Discharge Data Discharge Date/Time-TO BE ENTERED AT DEPARTURE: 06/04/23 23:28
[2023-06-04] MEDS: Albuterol/Ipratropium 3 ML UPD VIAL UPD (22:01)
[2023-06-04] MEDS: predniSONE 20 MG TAB 60 MG PO (22:03)
[2023-06-04] MEDS: Albuterol 2.5 MG/3 ML INH SOLN VIAL UPD (22:38)
[2023-06-04 22:45] LABS: COVID-19 PCR Negative (Negative); Influenza A PCR Positive (Negative); Influenza B PCR Negative (Negative); RSV PCR Negative (Negative); Source Nasopharynx
[2023-06-04] MEDS: Budesonide/Formoterol 80/4.5 6.9 GM 60 PUFF INH IH (23:01)
--- NOTE | 2023-06-04 23:09 | DI.VRAD_ITS ---
PROCEDURE INFORMATION: Exam: XR Chest Exam date and time: 06/04/2023 10:25 PM Age: 58 years old Clinical indication: Fever and shortness of breath TECHNIQUE: Imaging protocol: Radiologic exam of the chest. Views: 2 views. COMPARISON: CT CHEST LUNG CANCER SCREEN 12/16/2022 7:33 AM FINDINGS: Lungs: Unremarkable. No consolidation. Pleural spaces: Unremarkable. No pleural effusion. No pneumothorax. Heart/Mediastinum: Unremarkable. No cardiomegaly. Bones/joints: Unremarkable. IMPRESSION: No acute findings. Dictated and Authenticated by: Ryan Sen MD. Ordering:KATIE Colvin MD
[2023-06-04] MEDS: Benzonatate 100 MG CAP 300 MG PO (23:22)
[2023-06-04] MEDS: guaiFENesin/CODEINE PHOSPHATE 10 ML CUP PO (23:22)
== END 2023-06-04 23:28 | disposition home or self-care (01) ==
PROVIDERS: Emergency Provider Nurse Practitioner Acute Care; PCP Nurse Practitioner Family
DX: J10.1 Influenza due to other identified influenza virus with other respiratory manifestations (principal); J44.1 Chronic obstructive pulmonary disease with (acute) exacerbation; I44.7 Left bundle-branch block, unspecified; G47.33 Obstructive sleep apnea (adult) (pediatric); F17.290 Nicotine dependence, other tobacco product, uncomplicated; Z99.89 Dependence on other enabling machines and devices; Z99.81 Dependence on supplemental oxygen
CPT/HCPCS: 87637; 93005; 94640; 99284; 71046; 93010; J7512; J7613; J7620

== ENCOUNTER → 2023-06-25 01:35 | Outpatient (CLI) | payer SELFPAY ==
--- NOTE | 2023-06-25 | DI.US_ITS ---
Exam(s) MG MAMMO DIAGNOSTIC UNI US BREAST LT LIMITED EXAM: MG MAMMO DIAGNOSTIC UNI CLINICAL HISTORY: 6 month f/u,r92.8,abnl mammo. COMPARISON: MG Unilateral Mammography, Left from 11/23/2017 MG Combo Unilateral Left from 05/05/2018 MG MG mammo screening from 12/16/2018 MG MG MAMMO SCREENING from 01/10/2020 MG MG MAMMO SCREENING from 12/16/2022 US US BREAST LT LIMITED from 12/23/2022 US US BREAST LT LIMITED from 06/25/2023 TECHNIQUE: Craniocaudal and mediolateral oblique Full Field Digital Mammography views of the left br east with Computer Aided Diagnosis, spot compression views with tomography, followed by Tomosynthesis and left breast ultrasound. FINDINGS: Mammography/Tomosynthesis: Masses/Architectural Distortion: Increased prominence of previously noted area of nodularity in the u pper outer quadrant. Spot compression views show indistinct margins. Microcalcifications: No suspicious pleomorphic-type are seen. Skin Thickening/Nipple Retraction: None. Left breast US: Echotexture: Normal appearance of the glandular tissue. Shadowing: No suspicious foci. Cyst: None. Millimeter shadowing hypoechoic nodule with indistinct margins located in the upper outer quadrant, 2 o'clock position, 6 cm from the nipple. Ductal dilation: None. IMPRESSION: 1. Nodule in the left upper outer quadrant has suspicious features. Biopsy recommended. 2. The findings were discussed with the patient and called to Alannah Francisco, covering provider. BI-RADS Category 4 - Suspicious Abnormality: Biopsy should be considered Breast Density - Category B - Scattered areas of fibroglandular density Breast density category C or D implies that the patient has dense breast tissue. Dense breast tissue is very common and is not abnormal but dense breast tissue can make it harder to find cancer on a ma mmogram. Also, dense breast tissue may increase their breast cancer risk. This information about the result of the mammogram report was provided to the patient to raise their awareness. Use this report when you speak with the patient about their risks for breast cancer, which includes their family hist ory. At that time, you may recommend for more screening tests (Ultrasound or MRI) as they might be us eful based on their risk. A negative radiographic report should not delay biopsy if a dominant or clinically suspicious mass is present. Up to ten percent of cancers are not identified on mammography. A negative report may reinforce clinical impression. Adenosis and dense breasts may obscure an underlying neoplasm. False positive reports average 6 to 10%. Patient will receive a letter notifying them of these results.
== END ==
PROVIDERS: PCP Nurse Practitioner Family; Visit Provider Nurse Practitioner Family
DX: Z12.31 Encounter for screening mammogram for malignant neoplasm of breast (principal); R92.8 Other abnormal and inconclusive findings on diagnostic imaging of breast
CPT/HCPCS: 76642; 77061; 77065; G0279

== ENCOUNTER 2023-06-29 10:05 | Outpatient (CLI) | payer SELFPAY ==
--- NOTE | 2023-06-29 10:00 | RT.EKG_ITS ---
APPROVED REPORT Exam: Resting ECG Reason for Exam: Hypertention Patient Location: O HR:47 bpm ECG Measurements Heart Rate 47 AXIS OR 163 P 64 QRSd 140 QRS -25 QT 473 T 96 QTc 419 Conclusion Sinus rhythm...normal P axis, V-rate 50- 99 Ventricular trigeminy...trigeminy string>6 w/ V complexes Left bundle branch block...QRSd>120, broad/notched R
== END 2023-06-29 10:06 | disposition home or self-care (01) ==
LOC: DI.CM 10:06
PROVIDERS: PCP Nurse Practitioner Family; Visit Provider Nurse Practitioner Family
DX: R00.1 Bradycardia, unspecified (principal)
CPT/HCPCS: 93010

== ENCOUNTER 2023-06-29 11:41 | Outpatient (REF) | payer SELFPAY ==
[2023-06-29 13:05] LABS: Anion Gap 8.6 mmol/L (3-11); BUN 6 mg/dL (7-18); CO2 29.4 mmol/L (21.0-32.0); CREATININE 0.6 mg/dL (0.55-1.02); Calcium 9.5 mg/dL (8.5-10.1); Chloride 103 mmol/L (98-107); Estimated GFR 102.69 (mL/min/1.73m2); Glucose 97 mg/dL (74-106); Magnesium 2.1 mg/dL (1.8-2.4); Potassium 4.4 mmol/L (3.5-5.1); Sodium 141 mmol/L (136-145)
== END 2023-06-29 11:42 | disposition home or self-care (01) ==
LOC: LBN 11:41
PROVIDERS: PCP Nurse Practitioner Family; Visit Provider Nurse Practitioner Family
DX: I10 Essential (primary) hypertension (principal)
CPT/HCPCS: 80048; 83735

== ENCOUNTER 2023-06-29 15:19 | Emergency (ER) | payer SELFPAY ==
--- NOTE | 2023-06-29 15:15 | RT.EKG_ITS ---
APPROVED REPORT Exam: Resting ECG Reason for Exam: chest pain Patient Location: E HR:62 bpm ECG Measurements Heart Rate 62 AXIS MA 170 P 55 QRSd 144 QRS -26 QT 547 T 104 QTc 558 Conclusion Sinus rhythm...normal P axis, V-rate 60- 99 Left bundle branch block...QRSd>120, broad/notched R ST elevation secondary to IVCD...Multiple VCG criteria Prolonged QT interval...QTc >510mS
[2023-06-29 15:23] VITALS: BP 163/86; PULSE 70; RESP 18; TEMP 36.7; O2SAT 97
--- NOTE | 2023-06-29 15:29 | ED.GENADUL_ITS ---
HPI General Date/Time Provider Initiated Documentation: 06/29/23 15:22 . HPI Narrative: 58 year-old female presents to ED today by POV/ambulating with a chief complaint of central chest pain for one month- pleuritic, seen by PCP. Quality described as sharp pain worse with palpation, no radiation to dizziness, shortness of breath, diaphoresis, fever, URI symptoms. Severity is described as 6/10. Palliating factors include nothing specific attempted. Provoking factors include nothing specific. Events leading up to the incident/Associated Symptoms: Patient is a poor historian, unclear if cardiac history, does have COPD. Patient not anticoagulated. Related Data Home Medications Medication Instructions Recorded Confirmed fluoxetine 40 mg capsule 40 mg PO DAILY #90 tab-caps 06/06/22 06/29/23 gabapentin 800 mg tablet 800 mg PO QHS #90 tab-caps 06/06/22 06/29/23 hydrochlorothiazide 12.5 mg tablet 12.5 mg PO DAILY #90 tab-caps 06/06/22 06/29/23 trazodone 50 mg tablet 25 mg (1/2 x 50 mg) PO HS PRN #45 06/06/22 06/29/23 tab-caps albuterol sulfate 90 mcg/actuation See Rx Instructions .Route 12/17/22 06/29/23 aerosol inhaler .COMPLEX #17 grams Inhaler, Assist Devices [Pocket 1 ea miscellaneous DIRECTED ##0 06/04/23 06/29/23 Chamber] budesonide-formoterol HFA 80 2 puff inhalation BID #0 grams 06/04/23 06/29/23 mcg-4.5 mcg/actuation aerosol inhaler (Symbicort) metoprolol succinate 50 mg 50 mg PO QHS #90 tabs 06/29/23 06/29/23 tablet,extended release 24 hr Previous Rx's Medication Instructions Recorded fluoxetine 40 mg capsule 40 mg PO DAILY #90 tab-caps 06/06/22 gabapentin 800 mg tablet 800 mg PO QHS #90 tab-caps 06/06/22 hydrochlorothiazide 12.5 mg tablet 12.5 mg PO DAILY #90 tab-caps 06/06/22 trazodone 50 mg tablet 25 mg (1/2 x 50 mg) PO HS PRN #45 06/06/22 tab-caps albuterol sulfate 90 mcg/actuation See Rx Instructions .Route 12/17/22 aerosol inhaler .COMPLEX #17 grams Inhaler, Assist Devices [Pocket 1 ea miscellaneous DIRECTED ##0 06/04/23 Chamber] budesonide-formoterol HFA 80 2 puff inhalation BID #0 grams 06/04/23 mcg-4.5 mcg/actuation aerosol inhaler (Symbicort) metoprolol succinate 50 mg 50 mg PO QHS #90 tabs 06/29/23 tablet,extended release 24 hr Allergies Allergy/AdvReac Type Severity Reaction Status Date / Time Penicillins Allergy Intermediate THROAT Verified 06/29/23 15:35 TIGHTNES iron AdvReac Nausea Verified 06/29/23 15:35 shellfish Allergy Severe Anaphylaxis Uncoded 06/29/23 15:35 General Stated Complaint: Chest Pain IVETTE: 3 Review of Systems All systems reviewed & are unremarkable except as noted in HPI and below Exam Narrative Exam Narrative: GENERAL APPEARANCE: Well-nourished, non-toxic, awake and alert, atraumatic, no acute distress. SKIN: Warm, pink, dry, intact, without rashes/lesions/ulcerations. HEAD: Normocephalic, atraumatic, normal hair distribution for gender/age. EYES: Pupils PERRLA, EOMs intact without nystagmus, normal conjunctiva, no exudates on lids/lashes. ENT: Nares patent, no circumoral cyanosis, no facial swelling NECK: Supple, trachea midline, painless cervical ROM. LUNGS/CHEST: Lungs CTA bilaterally- no rhonchi/rales/wheezes diffusely, non- labored respirations, normal A/P diameter, symmetrical expansion, no chest wall deformity HEART (CV/PV): Regular rate and rhythm without murmur, no peripheral edema, no JVD. ABDOMEN: Soft, non-distended, no guarding, no tenderness. MSK: Normal ROM, no swelling/deformity to bilateral UEs or LEs, moving all extremities without weakness, no cyanosis, spine midline without tenderness, normal curvature. NEURO: Mental Status AAOx4 - alert to person, place, time, events No facial droop, no forehead involvement. Motor: No focal weakness - strength 5/5 in bilateral UEs and LEs, proximal and distal, symmetric. Sensory: sensation intact to light touch globally. Gait normal: patient ambulated without ataxia into ED room. PSYCH: euthymic, cooperative, pleasant, appropriate speech Course Vital Signs Vital signs: Vital Signs Temperature 36.7 C 06/29/23 15:23 Pulse 70 06/29/23 15:23 Respiratory Rate 18 06/29/23 15:23 Blood Pressure 163/86 H 06/29/23 15:23 Pulse Oximetry 97 06/29/23 15:23 Temperature 36.7 C 06/29/23 15:23 Temperature Source Temporal Artery Scan 06/29/23 15:23 Pulse 70 06/29/23 15:23 Respiratory Rate 18 06/29/23 15:23 Blood Pressure 163/86 H 06/29/23 15:23 Blood Pressure Position Sitting 06/29/23 15:23 Pulse Oximetry 97 06/29/23 15:23 Oxygen Delivery Method Room Air 06/29/23 15:23 Oxygen Flow Rate 0 06/29/23 15:23 Medical Decision Making This dictation utilizes [id number] dictation software and may contain unedited grammatical errors. 58 y/o F presents to ED today with a chief complaint of central chest pain worse with palpation for a month, denies dizziness, near syncope, sweating with chest pain, shortness of breath, chest pain worse with exertion. Patient questions past cardiac history, had cardiology studies many years ago. Patients' medical history: COPD, HTN, fibromyalgia, SVT, does endorse breast mass work-up ongoing. Family and social history: current smoker, lives independently. Pertinent exam findings / vital signs include lungs CTA, stable vitals, chronic HTN, benign abdomen, neuro intact. Differential / pathologies of concern include ACS, PE, PNA, PTX, Costochondritis, Pleurisy, COPD. Diagnostic studies of: -CBC, CMP, D-dimer, Trop I, BNP, EKG, CTA Chest PE Study. -CBC benign -CMP benign -Trop I neg with reliable onset -BNP mildly elev, non-specific -D-dimer 846, CTA performed, negative study -EKG consistent with priors, sinus rhythm @ 62bpm, W[place] 170, mildly widened QRS, L axis deviation, mildly prolonged QT Interventions of: -none. ED Course/Assessment/Plan: 58-year-old female with central pleuritic chest pain for 1 month without red flags for cardiac etiology presents for evaluation, troponin is negative BNP is mildly elevated without pulmonary edema on CTA, D-dimer was mildly elevated beyond age-adjusted but years negative CT was performed and was a negative study, there is no pneumothorax or other pathology that could be causing this chest pain, she may have gastritis versus costochondritis versus pleurisy with her smoking history, no signs of infection on laboratory workup, counseled on updating her baseline cardiology studies by outpatient orders. Findings not consistent with PE, ACS, pulmonary edema, respiratory failure, infection, pneumonia, pneumothorax. Disposition of Chest Pain of Uncertain Etiology. Patient verbalized understanding of the plan and return to ED criteria and engaged in shared decision making. Medical Records Medical records reviewed: Yes I reviewed the patient's medical records. Imaging Data Radiologic Study: Imaging: CT Scan Radiologist's impression: EXAM: CT CHEST PE CTA CLINICAL HISTORY: pleuritic CP, elevated d-dimer. TECHNIQUE: Imaging Protocol: Axial CT angiography was performed with multi- slice acquisition and multi-planar and/or 3D reconstructions. CONTRAST MATERIAL: Intravenous: Omnipaque 350 contrast volume:100 mL COMPARISON: CT CT CHEST LUNG CANCER SCREEN from 12/16/2022 FINDINGS: Tracheobronchial tree: Patent where visualized. Pulmonary parenchyma: No consolidation or dominant measurable mass. No architectural distortion. Pulmonary Arteries: No evidence of filling defect to suggest pulmonary emboli. Mediastinum and Susan: No dominant adenopathy or fluid collection. The esophagus is unremarkable. Visualized thyroid gland: Unremarkable. Pleura: No effusion or pneumothorax. Heart: The heart is not dilated. Coronary artery calcifications are present. No pericardial effusion. Aorta: Thoracic aorta non-dilated. Atherosclerosis is present. Upper abdomen: Unremarkable. Soft tissues: Unremarkable. Bones: Within normal limits for the patient's age.Stable superior compression deformity of T3. IMPRESSION: 1. No evidence of a pulmonary embolism or thoracic aortic aneurysm. 2. No acute pulmonary process. 3. Findings were discussed with the emergency department at 6:10 p.m. on 06/29/2023. Lab Data Lab results reviewed: Yes I reviewed the patient's lab results. Labs: Laboratory Tests Range/Units 06/29/23 15:43 WBC (4.4-10.8) 10^3/uL 8.81 RBC (3.93-5.22) 10^6/uL 4.85 Hgb (11.2-15.7) g/dL 14.3 Hct (36.0-46.0) % 43.8 MCV (80-95) fL 90 MCH (27.0-33.0) pg 29.5 MCHC (32.0-36.0) % 32.6 RDW (11.7-14.6) % 12.7 Plt Count (130-400) 10^3/uL 305 MPV (8.0-11.0) fL 9.6 Immature Gran % 0.3 Neutrophils % 66.2 Lymphocytes % 25.3 Monocytes % 7.6 Eosinophils % 0.0 Basophils % 0.6 Nucleated RBC % (0.0-0.3) % 0.0 Absolute Neutrophils (1.2-6.7) 10^3/uL 5.83 Absolute Lymphocytes (1.2-3.4) 10^3/uL 2.23 Absolute Monocytes (0.1-0.8) 10^3/uL 0.67 Absolute Eosinophils (0.0-0.7) 10^3/uL 0.00 Absolute Basophils (0.0-0.2) 10^3/uL 0.05 D-Dimer (<500) ng/mlFEU 826 H Sodium (136-145) mmol/L 141 Potassium (3.5-5.1) mmol/L 3.7 Chloride (98-107) mmol/L 102 Carbon Dioxide (21.0-32.0) mmol/L 32.3 H Anion Gap (3-11) mmol/L 6.7 BUN (7-18) mg/dL 5 L Creatinine (0.55-1.02) mg/dL 0.7 Est GFR (CKD-EPI 2020) (mL/min/1.73m2) 98.95 Glucose (74-106) mg/dL 105 Calcium (8.5-10.1) mg/dL 9.5 Magnesium (1.8-2.4) mg/dL 2.0 Total Bilirubin (0.2-1.0) mg/dL 0.9 AST (15-37) U/L 24 ALT (14-59) U/L 36 Alkaline Phosphatase (46-116) U/L 94 Troponin I (< or =60) ng/L < 50 NT-Pro-B Natriuret Pep (<300) pg/mL 528 H Total Protein (6.4-8.2) g/dL 7.9 Albumin (3.4-5.0) g/dL 3.6 Lipase (16-77) U/L 19 Quality:SDOH Health Related Social Needs: No Data to Display PFSH All Active Problems (Updated 06/29/23 @ 18:19 by CHUYITA Freeman) Chest pain of uncertain etiology (Acute) Bradycardia (Acute) Vaginal atrophy (Chronic) Started Estridiol 11/2021 Insomnia disorder (Acute) Elevated fasting glucose (Acute) Encounter for smoking cessation counseling (Acute) Tubular adenoma of colon (Acute) Inflammatory polyps of colon (Acute) Hyperplastic colon polyp (Acute) Encounter for annual physical exam (Acute) Abnormal mammography (Acute) Status post breast biopsy (Chronic) MORRIS on CPAP (Chronic) Urine, incontinence, stress female (Chronic 10/23/14) Tubular adenoma (Acute) 01/05/15; DR. 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) Essential hypertension (Chronic 07/30/16) Chronic daily headache (Chronic 11/10/17) Cervical pain (neck) (Chronic 01/07/18) Asthma (Acute 07/09/12) COPD-smokes Anxiety (Acute 10/20/13) Anisocoria (Acute 07/15/08) Medical History (Updated 06/29/23 @ 18:19 by CHUYITA Freeman) Acute exacerbation of chronic obstructive pulmonary disease Influenza A Excessive bleeding in premenopausal period (09/27/12) Uterine leiomyoma Migraine with aura and without status migrainosus, not intractable (11/10/17) Herpes zoster without complication (04/07/16) Obesity (BMI 30-39.9) Surgical History History of section Ligation of fallopian tube section X 2 EGD - MAC (01/05/15) DR.TERRY FERRARI Colonoscopy - MAC (01/05/15) DR.TERRY FERRARI Biopsy of breast Family History Mother , 72 Personal history of malignant neoplasm Cancer Father , 70 Diabetes Essential hypertension Heart disease Hyperlipidemia Stroke Colon cancer Substance abuse Sister Hypertension High cholesterol Brother Bone cancer Alcohol abuse Depression Hyperlipidemia Brother Asthma High cholesterol Hypertension Son Essential hypertension Depression Asthma High cholesterol Hypertension Substance abuse Daughter Essential hypertension Hypertension Brother Heart disease High cholesterol Hypertension Maternal Grandfather , 60 Stroke Hypertension High cholesterol Heart disease Paternal Grandfather , 80 Alcohol abuse High cholesterol Hypertension Maternal Grandmother , 80 High cholesterol Hypertension Paternal Grandmother , 80 High cholesterol Hypertension Social History (Updated 11/26/22 @ 12:23 by Bryanna Cardona) Smoking/Tobacco Use Status: Current every day Tobacco Type: cigars Quit status: has quit before Second Hand Exposure: Yes Smoking risk assessment performed?: Yes Alcohol Intake: never Counseling given: No Drug use: Never Substance use type: does not use Caregiver/Support person: No Household members: spouse Housing: house Communication Needs: None Do you need help understanding health information?: Rarely Pets and animals: Yes Pets and animals: cat(s) Sexually active: No Do you think of yourself as: straight/heterosexual Current gender identity: female What is your relationship status?: How often do you talk on the phone with friends or family?: decline to answer How often do you get together with friends or relatives?: twice per week How often do you attend mormonism or roman catholic services?: decline to answer Do you belong to any clubs or organized social groups?: no Panel score (0-1 are the most socially isolated patients): 1 What type of physical activity do you participate in: walking Duration: 15-30 minutes/day Frequency: 1-2 times per week Balbina/Pentecostalism: No preference Special balbina needs: No Seatbelt use: always Drive intox or ride 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: No Do you feel safe at home: Yes Do you feel safe in your relationship?: Yes Discharge Plan Disposition Patient Disposition: Home Condition: Stable Discharge Details Clinical Impression: Chest pain of uncertain etiology Primary Care Provider: Jarret Steward ED Provider: Graham Nixon Home Meds and New Rx's Prescriptions: Continued metoprolol succinate 50 mg tablet extended release 24 hr 50 mg PO QHS Qty: 90 3RF Rx Instructions: Decreased dose fluoxetine 40 mg capsule 40 mg PO DAILY Qty: 90 3RF gabapentin 800 mg tablet 800 mg PO QHS Qty: 90 3RF hydrochlorothiazide 12.5 mg tablet 12.5 mg PO DAILY Qty: 90 3RF trazodone 50 mg tablet 25 mg PO HS PRN Qty: 45 3RF albuterol sulfate 90 mcg/actuation HFA aerosol inhaler See Rx Instructions .ROUTE .COMPLEX Qty: 17 3RF Dose Instruction: INHALE 2 PUFFS EVERY 6 HOURS NEEDED Rx Instructions: INHALE 2 PUFFS EVERY 6 HOURS NEEDED budesonide-formoterol [Symbicort] 80-4.5 mcg/actuation Hfa Aerosol Inhaler 2 puff inhalation BID Qty: 0 0RF Inhaler, Assist Devices [Pocket Chamber] 1 ea miscellaneous DIRECTED Qty: 0 0RF Discharge Instructions Instructions: Noncardiac Chest Pain (ED) Additional Instructions: You were seen in the emergency department for your chest pain and shortness of breath on exertion for over 1 month, your cardiac studies have come back negative, CTA of your chest was performed to rule out a blood clot of your lungs which was negative for any of this pathology. You may have costochondritis whi ch is musculoskeletal chest pain in between the ribs and sternum. You can treat this with topical diclofenac gel that is [id number] anti-inflammatory gel, I put gentle heat on the chest, you may have irritation in your lungs from your longstanding smoking history and recent illness causing a possible pleurisy. We had no pathology warranting admission today and I think you are stable to re main at home, please discuss with your primary care provider scheduling updated baseline cardiology studies like a treadmill stress test and echocardiogram as it has been sometime since you have had the studies. Please return to the ER for any increasing chest pain especially with shortness of breath on exertion, near fainting, sweating with chest pain. Referrals: Jarret Steward NP [Primary Care Provider] - Discharge Data Discharge Date/Time-TO BE ENTERED AT DEPARTURE: 06/29/23 18:26
[2023-06-29 15:47] VITALS: RESP 19
[2023-06-29 15:50] LABS: Abs Immature Grans 0.03 10^3/uL (0.0-0.06); Absolute Basophil Count 0.05 10^3/uL (0.0-0.2); Absolute Lymphocyte Count 2.23 10^3/uL (1.2-3.4); Absolute Monocyte Count 0.67 10^3/uL (0.1-0.8); Absolute Neutrophil Count 5.83 10^3/uL (1.2-6.7); Basophils % 0.6; HCT 43.8 % (36.0-46.0); HGB 14.3 g/dL (11.2-15.7); Immature Grans % 0.3; Lymphocytes % 25.3; MCH 29.5 pg (27.0-33.0); MCHC 32.6 % (32.0-36.0); MCV 90 fL (80-95); MPV 9.6 fL (8.0-11.0); Monocytes % 7.6; Neutrophils % 66.2; Platelet Count 305 10^3/uL (130-400); RBC 4.85 10^6/uL (3.93-5.22); RDW 12.7 % (11.7-14.6); RDW-SD 41.9 fL; WBC 8.81 10^3/uL (4.4-10.8)
[2023-06-29 16:13] LABS: ALT 36 U/L (14-59); AST 24 U/L (15-37); Albumin 3.6 g/dL (3.4-5.0); Alkaline Phosphatase 94 U/L (46-116); Anion Gap 6.7 mmol/L (3-11); BUN 5 mg/dL (7-18); Bilirubin, Total 0.9 mg/dL (0.2-1.0); CO2 32.3 mmol/L (21.0-32.0); CREATININE 0.7 mg/dL (0.55-1.02); Calcium 9.5 mg/dL (8.5-10.1); Chloride 102 mmol/L (98-107); Estimated GFR 98.95 (mL/min/1.73m2); Glucose 105 mg/dL (74-106); Lipase 19 U/L (16-77); NT-proBNP 528 pg/mL (<300); Potassium 3.7 mmol/L (3.5-5.1); Sodium 141 mmol/L (136-145); Total Protein 7.9 g/dL (6.4-8.2); Troponin I < 50 ng/L (< or =60)
[2023-06-29 16:21] LABS: D-Dimer 826 ng/mlFEU (<500)
[2023-06-29 16:59] VITALS: BP 180/101; PULSE 63; O2SAT 93
--- NOTE | 2023-06-29 17:35 | DI.CT_ITS ---
Exam(s) CT CHEST PE CTA EXAM: CT CHEST PE CTA CLINICAL HISTORY: pleuritic CP, elevated d-dimer. TECHNIQUE: Imaging Protocol: Axial CT angiography was performed with multi-slice acquisition and mu lti-planar and/or 3D reconstructions. CONTRAST MATERIAL: Intravenous: Omnipaque 350 contrast volume:100 mL COMPARISON: CT CT CHEST LUNG CANCER SCREEN from 12/16/2022 FINDINGS: Tracheobronchial tree: Patent where visualized. Pulmonary parenchyma: No consolidation or dominant measurable mass. No architectural distortion. Pulmonary Arteries: No evidence of filling defect to suggest pulmonary emboli. Mediastinum and Susan: No dominant adenopathy or fluid collection. The esophagus is unremarkable. Visualized thyroid gland: Unremarkable. Pleura: No effusion or pneumothorax. Heart: The heart is not dilated. Coronary artery calcifications are present. No pericardial effusion . Aorta: Thoracic aorta non-dilated. Atherosclerosis is present. Upper abdomen: Unremarkable. Soft tissues: Unremarkable. Bones: Within normal limits for the patient's age.Stable superior compression deformity of T3. IMPRESSION: 1. No evidence of a pulmonary embolism or thoracic aortic aneurysm. 2. No acute pulmonary process. 3. Findings were discussed with the emergency department at 6:10 p.m. on 06/29/2023. RADIATION DOSE DELIVERED: 342.51mGy.cm Total DLP DATA REPOSITORY: All CT scans at this facility are submitted to the National Radiology Data Registry (NRDR) Dose Index Registry (DIR) with the [employer] (ACR). RADIATION OPTIMIZATION: All CT scans at this facility use at least one of these dose optimization te chniques: automated exposure control; mA and/or kV adjustment per patient size (includes targeted exa ms where dose is matched to clinical indication); or iterative reconstruction.
[2023-06-29] MEDS: Normal Saline - Diluent 50 ML VIAL IJ (17:38)
[2023-06-29] MEDS: Omnipaque 350 MG/ML 100 ML BTL IJ (17:39)
[2023-06-29 18:26] VITALS: BP 183/92; PULSE 70; RESP 16; O2SAT 95
== END 2023-06-29 18:26 | disposition home or self-care (01) ==
PROVIDERS: Emergency Provider Physician Assistant; PCP Nurse Practitioner Family
DX: R07.89 Other chest pain (principal); I44.7 Left bundle-branch block, unspecified; F17.210 Nicotine dependence, cigarettes, uncomplicated
CPT/HCPCS: 71275; 80053; 83690; 93005; 99285; 83735; 83880; 84484; 85025; 85379; 93010; 99284; J3490

== ENCOUNTER → 2023-07-06 02:44 | Outpatient (CLI) | payer SELFPAY ==
--- NOTE | 2023-07-06 | DI.US_ITS ---
Exam(s) US NEEDLE LOCAL BREAST WO RAD EXAM: LEFT BREAST LUMP,ULTRASOUND GUIDED BX COMPARISON: MG MG MAMMO DIAGNOSTIC UNI from 06/25/2023 US US BREAST LT LIMITED from 06/25/2023 TECHNIQUE: Ultrasound performed using standard protocol. FINDINGS: Sonography was provided for Dr. Hipolito Kenney during the performance of a left breast biopsy. Please refer to the procedure report for complete details. DATA REPOSITORY:
--- NOTE | 2023-07-06 14:15 | BREAST_PTH ---
PATIENT: Yaz Michel LOC: [facility] U#:[id number] AGE/SX: 60/F ROOM: RE07/06/[address]: Hipolito Kenney MD : 1965 BED: DIS: SPEC #: [id number] RECD: 07/06/23 15:47 STATUS: HENRY REQ #: [id number] ANDRES: 07/06/23 14:[address]: Hipolito Kenney DEPT: Surgical Specimen RECD BY: Cinthia Hair ENTERED: 07/06/23 15:48 SP TYPE: Breast OTHR DR: Jarret Cantu, CHANTAL Tissues: 1 - BREAST BX NEEDLE Procedures: GROSS AND MICRO LEVEL 4 Comments: [id number]
--- NOTE | 2023-07-06 14:26 | OPPNE_ITS ---
Date of service: 07/06/23 Time of Service: 14:26 Procedure Note Date of procedure: 07/06/23 Procedure: Left breast ultrasound-guided core needle biopsy Surgeon/Proceduralist/Physician: Hipolito Kenney Procedure Diagnosis: Left breast mass Procedure Indications: Yaz is a 58-year-old woman who had a slightly palpable mass in the upper outer left breast for many years. She reports that is traditionally pea-sized, although the size does change from time to time. She underwent a mammogram this year, which was followed up with an ultrasound that demonstrated ill-defined lesion in the left breast, and recommended biopsy for tissue diagnosis. We reviewed the risks and the benefits of the procedure. I think she has a good understanding of this. She provided consent today Procedure Description: The lesion was localized within the left breast, in the correct position and size were confirmed in concordance with her previous ultrasound. Next, I prepped the adjacent skin to the ultrasound probe. I then established a field block using local anesthetic, and anesthetize the trajectory of the biopsy with the assistance of the ultrasound. Next, I made a small incision in the skin with an 11 blade scalpel. I then introduced a 22 mm Bard core needle biopsy device in through the percutaneous approach, and with the assistance of the real-time ultrasound imaging, I obtain 3 core needle biopsy specimens for adequate medical service representative sampling of the lesion. Then, using a Bard ultra clip to device, I marked the lesion with a radio opaque clip for future localization. The skin was then cleansed, and a Band-Aid was used to dress the percutaneous access site. Patient tolerated the procedure just fine. Specimens were placed in formalin, labeled appropriately for pathology.
== END ==
PROVIDERS: PCP Nurse Practitioner Family; Visit Provider Surgery
DX: C50.412 Malignant neoplasm of upper-outer quadrant of left female breast (principal)
CPT/HCPCS: 19083; 88305; 76942

== ENCOUNTER → 2023-12-10 00:19 | Outpatient (CLI) | payer SELFPAY ==
--- NOTE | 2023-12-10 | DI.DEXA_ITS ---
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 No compression deformities identified. Left hip: Total T-Score: -1.5 Total Z-Score: -0.5 T- and Z-scores: Findings are consistent with osteopenia. Lumbar Spine: Total T-Score: 0.0 Total Z-Score: 1.5 T- and Z-scores: Within normal limits. IMPRESSION: No evidence of osteoporosis.
== END ==
PROVIDERS: PCP Nurse Practitioner Family; Visit Provider Internal Medicine Hematology & Oncology
DX: Z79.811 Long term (current) use of aromatase inhibitors (principal); Z17.0 Estrogen receptor positive status [ER+]; C50.112 Malignant neoplasm of central portion of left female breast
CPT/HCPCS: 77080

== ENCOUNTER 2024-03-01 01:40 | Outpatient (CLI) | payer MEDICAID, SELFPAY ==
--- NOTE | 2024-03-01 06:15 | DI.CTLCSR_ITS ---
Exam(s) CT CHEST LUNG CANCER SCREEN EXAM: CT CHEST LUNG CANCER SCREEN CLINICAL HISTORY: Screening for lung cancer,CURRENT SMOKER, F17.210 TECHNIQUE: Imaging Protocol: Axial computed tomography images with coronal and sagittal reformatted images were created and reviewed COMPARISON: CT CT CHEST PE CTA from 06/29/2023 FINDINGS: Tracheobronchial tree: Patent where visualized. No bronchiectasis. Pulmonary parenchyma: There is a small ground-glass infiltrate in the superior segment of the right l ower lobe. This is nonspecific. No other focal consolidating infiltrates are seen. No architectura l distortion. Lung Nodules: None. Mediastinum and [place]: No dominant adenopathy or fluid collection. The esophagus is unremarkable. Thyroid gland: Unremarkable. Lymph nodes: Unremarkable. Pleura: No effusion or pneumothorax. Heart: The heart is not dilated. Mild coronary artery calcification. No pericardial effusion. Aorta: Thoracic aorta non-dilated.Atherosclerotic calcification is present. Upper abdomen: Unremarkable. Soft Tissues: Unremarkable. Bones: Within normal limits for the patient's age. There is a stable superior endplate compression d eformity of T3. IMPRESSION: 1. No suspicious pulmonary nodules. 2. Small ground-glass infiltrate in the superior segment of the right lower lobe. This is nonspecifi c. This may represent atelectasis, pneumonia or edema. Please correlate clinically. Lung RADS Cat 1S - Negative: No nodules and definitely benign nodules. Other: Clinically Significant or Potentially Clinically Significant Findings (non lung cancer) Lung-RADS 1.0 CATEGORIES: Category 0 - Prior chest CT exam(s) being located for comparison. Category 1 - Annual screening in 12 months. No nodules or definitely benign nodules. Category 2 - Annual screening in 12 months. Benign appearance. Nodules with low likelihood of becomin g active cancer. Category 3 - 6-month follow-up. Probably benign. Short-term follow-up suggested. Nodules with low lik elihood of becoming active cancer. Category 4A - 3-month follow-up and CT/PET if >8 mm in size. Suspicious finding. Findings which requi re additional testing. Category 4B - Findings which require additional testing and tissue sampling. Suspicious finding. Category 4X - Category 3 or 4 nodules with additional features or imaging findings that increases the suspicion of malignancy. Modifier S- Potentially clinically significant finding. (Non lung cancer) RADIATION DOSE DELIVERED: 31.65mGy.cm Total DLP 31.65mGy.cmTotal DLP DATA REPOSITORY: All CT scans at this facility are submitted to the National Radiology Data Registry (NRDR) Dose Index Registry (DIR) with the [employer] (ACR). RADIATION OPTIMIZATION: All CT scans at this facility use at least one of these dose optimization te chniques: automated exposure control; mA and/or kV adjustment per patient size (includes targeted exa ms where dose is matched to clinical indication); or iterative reconstruction.
== END 2024-03-01 02:00 ==
PROVIDERS: PCP Nurse Practitioner Family; Visit Provider Nurse Practitioner Family
DX: F17.210 Nicotine dependence, cigarettes, uncomplicated (principal); Z12.2 Encounter for screening for malignant neoplasm of respiratory organs; R91.8 Other nonspecific abnormal finding of lung field
CPT/HCPCS: 71271

== ENCOUNTER 2024-04-08 02:50 | Outpatient (CLI) | payer MEDICAID, SELFPAY ==
[2024-04-08] MEDS: Levalbuterol HFA 15 GM INH 4 PUFF IH (09:14)
[2024-04-08] MEDS: Inhaler, Assist Device 1 EACH MC (09:14)
--- NOTE | 2024-04-18 14:47 | W.PFT ---
Date of service: 04/08/24 Time of Service: 08:03 Pulmonary Function Test Result Indications: Asthma Interpretation Spirometry: There is no airflow limitation. No bronchodilator response. The spirometry appears restrictive. Lung Volumes: There is air trapping Diffusion Capacity: Reduced diffusion Airway Pressure: Increased airways resistance Impression No obstruction, but there is air trapping, increase airways resistance and a reduced diffusion. Air trapping and resistance can be explained by asthma, however the diffusion deficit may reflect emphysema, ILD or pulmonary vascular disease. Clinical Correlation therefore is recommended.
== END 2024-04-08 02:51 | disposition home or self-care (01) ==
LOC: RT 02:50
PROVIDERS: PCP Nurse Practitioner Family; Visit Provider Student in an Organized Health Care Education/Training Program
DX: J45.909 Unspecified asthma, uncomplicated (principal); F17.210 Nicotine dependence, cigarettes, uncomplicated
CPT/HCPCS: 94060; 94726; 94729

== ENCOUNTER 2024-04-26 16:11 | Outpatient (REF) | payer MEDICAID, SELFPAY ==
[2024-04-26 16:17] LABS: Abs Immature Grans 0.04 10^3/uL (0.0-0.06); Absolute Basophil Count 0.04 10^3/uL (0.0-0.2); Absolute Eosinophil Count 0.03 10^3/uL (0.0-0.7); Absolute Lymphocyte Count 1.92 10^3/uL (1.2-3.4); Absolute Monocyte Count 0.79 10^3/uL (0.1-0.8); Basophils % 0.4 %; Eosinophils % 0.3 %; HCT 42.6 % (36.0-46.0); HGB 13.9 g/dL (11.2-15.7); Immature Grans % 0.4 %; Lymphocytes % 17.7 %; MCH 30.2 pg (27.0-33.0); MCHC 32.6 % (32.0-36.0); MCV 93 fL (80-95); MPV 10.7 fL (8.0-11.0); Monocytes % 7.3 %; Neutrophils % 73.9 %; Platelet Count 286 10^3/uL (130-400); RDW 12.6 % (11.7-14.6); WBC 10.82 10^3/uL (4.4-10.8)
[2024-04-26 16:35] LABS: ALT 33 U/L (14-59); AST 26 U/L (15-37); Albumin 3.6 g/dL (3.4-5.0); Alkaline Phosphatase 108 U/L (46-116); Anion Gap 6.1 mmol/L (3-11); BUN 10 mg/dL (7-18); Bilirubin, Total 0.72 mg/dL (0.2-1.0); CO2 31.9 mmol/L (21.0-32.0); CREATININE 0.7 mg/dL (0.55-1.02); Calcium 9.4 mg/dL (8.5-10.1); Chloride 102 mmol/L (98-107); Estimated GFR 98.34 (mL/min/1.73m2); Glucose 92 mg/dL (74-106); NT-proBNP 663 pg/mL (<300); Potassium 4.2 mmol/L (3.5-5.1); Sodium 140 mmol/L (136-145); Total Protein 7.3 g/dL (6.4-8.2)
[2024-04-27 17:38] LABS: IgE 813 IU/mL (<158)
== END 2024-04-26 16:12 | disposition home or self-care (01) ==
LOC: LBN 16:11
PROVIDERS: Physician Assistant Surgical; PCP Nurse Practitioner Family; Visit Provider Nurse Practitioner Family
DX: J45.909 Unspecified asthma, uncomplicated (principal); F17.200 Nicotine dependence, unspecified, uncomplicated; R06.00 Dyspnea, unspecified
CPT/HCPCS: 80053; 82785; 83880; 85025

== ENCOUNTER 2024-05-03 01:52 | Outpatient (CLI) | payer MEDICAID, SELFPAY ==
--- NOTE | 2024-05-03 06:30 | DI.US_ITS ---
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 Technically limited study due to body habitus. Conclusion Normal left ventricular wall thickness and chamber size. EF is 50%. There are no segmental wall mot ion abnormalities Normal right ventricular size and function Left atrium is mildly dilated. Right atrial size is normal There are no structural valvular abnormalities Trace aortic regurgitation Wall motion Left Ventricle The left ventricle is normal size. Left ventricular systolic function is borderline. Beat to beat judy iation. Arrhythmia throughout exam. There is normal left ventricular wall thickness. There is no vent ricular septal defect visualized. LVEF is50%. Right Ventricle The right ventricle is normal size. The right ventricular systolic function is normal. Atria Left atrium is mildly dilated. The right atrium size is normal. The interatrial septum is intact with no evidence for an atrial septal defect. Aortic Valve The aortic valve is normal in structure. Aortic valve is trileaflet. There is no aortic valvular sten osis. Trace aortic regurgitation. Mitral Valve The mitral valve is normal in structure. No evidence of mitral valve stenosis. Trace mitral regurgita tion. Tricuspid Valve The tricuspid valve is normal in structure. There is no tricuspid valve stenosis. Trace tricuspid re gurgitation. Unable to assess PA pressure. Pulmonic Valve The pulmonary valve is normal in structure. There is no pulmonic valvular stenosis. Trace pulmonic re gurgitation. Great Vessels The aortic root is normal in size. The ascending aorta is normal in size. Aortic arch is not well vis ualized. IVC is normal in size and collapses >50% with inspiration. Pericardium There is no pericardial effusion. 2D Dimensions IVSD d PLAX 0.90 cm F: 0.6-1.0 Ao Root d 3.33 cm F: 2.7 - 3.3 LVPW d PLAX 0.90 cm F: 0.6 - 1.0 Ao Asc Diam d 3.18 cm F: 2.3 - 3.1 LVID d PLAX 5.50 cm F: 3.8 - 5.2 LVDs 4.10 cm F: 2.2 - 3.5 LV EF Teichholz 50.3 % FS 25.86 % LV EDV (Teich) 146.3 mL LV ESV (Teich) 72.7 mL M-Mode TAPSE 2.28 cm (M/F) >1.7 Auto EF LV EDV A4C 127.7 mL LV EDV A2C 172.2 mL LV EDV BP 146.6 mL LV ESV A4C 71.7 mL LV ESV A2C 97.1 mL LV ESV BP 82.2 mL LVEF(%) A4C 43.9 % LVEF(%) A2C 43.6 % LVEF(%) BP 43.9 % LV SV A4C 56.0 ml LV SV A2C 75.1 ml LV SV BP 64.4 ml LV CO A4C 3.4 L/min LV CO A2C 4.5 L/min LV CO BP 3.9 L/min HR A4C 60.92 BPM HR A2C 59.41 BPM LV EDV Index (BP) LA Volume LA Length A4C 5.6 cm LA Length A2C 5.2 cm LA Area A4C s 21.51 cm2 LA Area A2C s 22.44 cm2 LA Vol A4C A-L 70.53 mL LA Vol A2C A-L 82.30 mL LA Vol Biplane A-L 78.9 mL LA Vol/BSA A4C A-L LA Vol/BSA A2C A-L LA Vol/BSA BP A-L 83.9 mL/m2 LA Vol A4C MOD 66.2 mL LA Vol A2C MOD 77.4 mL LA Vol BP MOD 73.5 mL RA Volume RA Area A4C 12.4 cm2 RA ESV A4C (A-L) 29.1mL RA Vol/BSA A4C A-L RA Length A4C 4.5 cm RA ESV A4C (MOD) 28.1mL LV Diastology MV E' medial 0.051 (>0.07 m/s) MV E Vmax 0.87 (0.4-1.3 m/s) MV E/E' MED 16.92 (<14) MV A Vmax 0.80 (0.4-1.3 m/s) MV E' lateral 0.087 (>0.1 m/s) E/A Ratio 1.1 MV E/E' LAT 9.96 (<14) MV E' Average 0.069 m/s MV E/E'(average) 12.54 Aortic Valve AoV Vmax 1.44 m/s LVOT Vmax 0.91 m/s AoV Peak Grad 8.3 mmHg LVOT Peak Grad 3.3 mmHg AoV Area (Vmax) 2.03 cm2 LVOT VTI 0.216 m AoV VTI 0.322 m LVOT Mean Grad 2.1 mmHg AoV Mean Amari. 0.91 m/s LVOT SV 69.66 mL AoV Mean Grad 3.9 mmHg LVOT Diam s 2.00 cm AoV Area (VTI) 2.17 cm2 AV Regurg Peak Gr. 8.30 mmHg Velocity Ratio 0.63 Mitral Valve MV DT 164 (160-240 msec) MV Vmax TIPS 0.77 m/s MV Mean Grad 1.3 (<2mmHg) MV VTI 0.334 m Pulmonary Valve PV Vmax 0.93 (0.5-1.5 m/s) RVOT Vmax 0.77 m/s PV Peak Grad 3.5 mmHg RVOT Peak Gr. 2.4 mmHg PV Mean Amari 0.70 m/s RVOT VTI 0.196 m PV Mean Grad 2.1 mmHg RVOT Mean Gr. 1.2 mmHg Tricuspid Valve TV S' 0.12 m/s
--- NOTE | 2024-05-03 08:16 | DI.CT_ITS ---
Exam(s) CT CHEST WO EXAM: CT CHEST WO CLINICAL HISTORY: asthma, f/u ground glass infiltrate, j45.909. TECHNIQUE: Imaging protocol: Axial computed tomography images were obtained and coronal and sagittal reformatted images were created and reviewed. Lung Computer Aided Detection (CAD) was utilized. COMPARISON: CT CHEST FOR PULMONARY EMBOLUS from 11/19/[address] CHEST LUNG CANCER SCREEN from 12/16/[address] CHEST PE CTA from 06/29/[address] CHEST LUNG CANCER SCREEN from 03/01/2024 FINDINGS: Tracheobronchial tree: Patent where visualized. No bronchiectasis is present. Pulmonary parenchyma: No consolidation or dominant measurable mass. No architectural distortion. Ther e is mild atelectasis seen in the left lingula. No new nodules are present. The infiltrate in the s uperior segment of the right lower lobe has resolved. Mediastinum and Susan: No dominant adenopathy or fluid collection. The esophagus is unremarkable. Thyroid gland: Unremarkable. Pleura: No effusion or pneumothorax. Heart: The heart is not dilated. Mild 2 vessel coronary artery calcification is present. No pericard ial effusion. Aorta: Thoracic aorta non-dilated. Atherosclerotic calcification is present. Upper abdomen: There is a new 9 mm hypodensity in the dome of the liver (series 2, image 97). Lymph nodes: Within normal limits. Tubes, Catheters, and Lines: Soft tissues: There is again seen thickening of the scan of the left breast and the irregular area at the 2 o'clock position of the left breast consistent with the patient's known carcinoma. Bones:Within normal limits for the patient's age. No aggressive osseous lesions are identified. IMPRESSION: 1. Resolution of the right lower lobe ground-glass infiltrate. No acute infiltrates are seen. 2. No new pulmonary nodules are present. 3. New 9 mm hypodensity in the dome of the liver. CT scan the abdomen and pelvis is recommended for further evaluation. 4. Findings consistent with the patient's known history of left breast carcinoma. Unexpected findings RADIATION DOSE DELIVERED: 224.78mGy.cm Total DLP 224.78mGy.cm Total DLP DATA REPOSITORY: All CT scans at this facility are submitted to the National Radiology Data Registry (NRDR) Dose Index Registry (DIR) with the [employer] (ACR). RADIATION OPTIMIZATION: All CT scans at this facility use at least one of these dose optimization te chniques: automated exposure control; mA and/or kV adjustment per patient size (includes targeted exa ms where dose is matched to clinical indication); or iterative reconstruction.
== END 2024-05-03 02:12 ==
LOC: DI 01:52
PROVIDERS: PCP Nurse Practitioner Family; Visit Provider Physician Assistant Surgical
DX: R91.8 Other nonspecific abnormal finding of lung field (principal); R06.00 Dyspnea, unspecified
CPT/HCPCS: 71250; 93306

== ENCOUNTER 2024-06-06 01:30 | Outpatient (CLI) | payer MEDICAID, SELFPAY ==
--- NOTE | 2024-06-06 07:00 | DI.CT_ITS ---
Exam(s) CT ABDOMEN PELVIS W EXAM: CT ABDOMEN PELVIS W CLINICAL HISTORY: incidental finding on chest CT,LIVER NODULE,K76.89. TECHNIQUE: Imaging Protocol: Axial computed tomography images with coronal and sagittal reformatted images were created and reviewed CONTRAST MATERIAL: Intravenous: Omnipaque-350 100cc Oral: Yes. Oral contrast was also administered for bowel opacification. COMPARISON: CT CT CHEST PE CTA from 06/29/[address] CHEST WO from 05/03/2024 FINDINGS: VISUALIZED LUNG BASES: No nodules nor pleural effusions evident. Again noted is significant skin thi ckening of the left breast in this patient to apparently has recent diagnosis of left breast malignan cy. ABDOMEN: There is no ascites. LIVER: There are no significant focal hepatic lesions evident. There does not appear to be a signifi cant lesion in the region described dome of the liver on the lower most images of a recent noninfused chest CT study. Other possibility is that this might have represented a subtle subcapsular benign h emangioma which rapidly becomes isodense to the surrounding liver parenchyma on the present contrast infused study. GALLBLADDER/BILIARY: No obvious gallbladder pathology. CBD is not dilated. PANCREAS: No evidence of pancreatic mass nor dilatation of the pancreatic duct. SPLEEN: Spleen is not enlarged. No obvious intrasplenic lesions. Splenic and portal veins are paten t. ADRENALS: There are no significant adrenal masses. KIDNEYS:No cysts evident. No solid renal masses. No calculi nor hydronephrosis.. ABDOMINAL AORTA: Abdominal aorta is not enlarged. LYMPH NODES:There is no retroperitoneal nor paraaortic adenopathy. ABDOMINAL WALL: No evidence of significant anterior abdominal wall nor inguinal hernia. GI: There is no evidence of bowel obstruction, free air, nor abscess. PELVIS: GI: No evidence of appendicitis.No evidence of sigmoid diverticulitis. LYMPH NODES: There is no intrapelvic nor inguinal adenopathy. REPRODUCTIVE: There are multiple enhancing uterine fibroids noted. Difficult on these images to sepa rate myometrium from endometrium. No abnormal adnexal masses nor free fluid in the pelvis. URINARY BLADDER: Urinary bladder wall diffusely thickened either related to cystitis or under distens ion. There are no radiopaque calculi in the bladder lumen. Pelvic ureters are not dilated. OSSEOUS: No fractures and no significant osseous lesions. Multilevel chronic degenerative disc disease noted. IMPRESSION: 1. No evidence of significant lesion in the liver, primary nor metastatic. 2. Multiple enhancing lesions seen in the uterus which are probably uterine fibroids. Nevertheless, it is difficult to differentiate the endometrium from the myometrium on this study and given this pat ient's past medical history I recommend follow-up pelvic-uterus ultrasound 3. The wall of the urinary bladder is diffusely thickened. Either related to cystitis or under diste nsion. RADIATION DOSE DELIVERED: 1,342.06mGy.cm Total DLP DATA REPOSITORY: All CT scans at this facility are submitted to the National Radiology Data Registry (NRDR) Dose Index Registry (DIR) with the [employer] (ACR). RADIATION OPTIMIZATION: All CT scans at this facility use at least one of these dose optimization te chniques: automated exposure control; mA and/or kV adjustment per patient size (includes targeted exa ms where dose is matched to clinical indication); or iterative reconstruction.
[2024-06-06] MEDS: Barium Sulfate 2% W/V-Creamy Vanilla Smoothie 450 ML BTL PO ×2 (09:09→09:10)
[2024-06-06] MEDS: Normal Saline - Diluent 50 ML VIAL IJ (10:37)
[2024-06-06] MEDS: Omnipaque 350 MG/ML 100 ML BTL IJ (10:40)
== END 2024-06-06 01:50 ==
LOC: DI 01:30
PROVIDERS: PCP Nurse Practitioner Family; Visit Provider Physician Assistant Surgical
DX: K76.89 Other specified diseases of liver (principal)
CPT/HCPCS: 74177; J3490

== ENCOUNTER 2024-06-24 00:47 | Outpatient (CLI) | payer MEDICAID, SELFPAY ==
--- NOTE | 2024-06-24 06:15 | DI.US_ITS ---
Exam(s) US PELVIS TRANSVAGINAL EXAM: US PELVIS TRANSVAGINAL CLINICAL HISTORY: fibroids noted on abd/pelvis CT,D21.9 TECHNIQUE: Transabdominal and transvaginal imaging was performed using standard protocol. COMPARISON: CT CT ABDOMEN PELVIS W from 06/06/2024 FINDINGS: Transabdominal images are limited due to lack of bladder distention. UTERUS: Anteverted. 5.4 x 3.1 x 4 cm Endometrium: 2 mm Myometrium: multiple anterior and posterior fibroids, largest posterior measuring 2.5 cm. Six total fibroids were measured. Cervix: Unremarkable. OVARIES: Right: Cyst or mass: None. Left: Cyst or mass: None. DOPPLER: Color: Symmetric and uniform flow to both ovaries. No hyperemia. CUL-DE-SAC: Free fluid: None. IMPRESSION: 1. Multiple small uterine fibroids. Largest 2.5 cm. Endometrial stripe within normal limits. 2. Unremarkable bilateral ovaries. DATA REPOSITORY:
== END 2024-06-24 01:07 ==
LOC: DI 00:47
PROVIDERS: PCP Nurse Practitioner Family; Visit Provider Physician Assistant Surgical
DX: D25.9 Leiomyoma of uterus, unspecified (principal)
CPT/HCPCS: 76830; 76856

== ENCOUNTER 2024-07-10 09:20 | Emergency (ER) | payer MEDICAID, SELFPAY ==
[2024-07-10] VITALS (70 sets, daily range): BP systolic 102–149; BP diastolic 63–99; PULSE 43–119; RESP 11–38; TEMP 36.5; O2SAT 88–97
--- NOTE | 2024-07-10 10:00 | DI.CT_ITS ---
Exam(s) CT HEAD WO/W EXAM: CT HEAD WO/W CLINICAL HISTORY: Breast Ca, complaining of MCKNIGHT, eval mets. TECHNIQUE: Imaging Protocol: Axial computed tomography images with coronal and sagittal reformatted images were created and reviewed. CONTRAST MATERIAL: Intravenous: Omnipaque 350 contrast volume:T5 mL COMPARISON: CT HEAD WITHOUT CONTRAST from 02/22/[address] CHEST W from 07/10/2024 FINDINGS: Ventricles and Extra axial spaces: Normal in size and morphology for the patient's age. Hemorrhage: None. Cerebral parenchyma: No evidence of an acute territorial infarct. Mild chronic microvascular ischemi c disease is present. No acute mass effect. Enhancement: No suspicious enhancement. [place]: Unremarkable. Midline shift: None. Brainstem/Cerebellum: Normal. Calvarium: Normal. Visualized Paranasal sinuses/Mastoids: Clear. IMPRESSION: Normal CT scan of the head.No evidence of intracranial metastatic disease. If there is continued con cern, an MRI of the brain without/with contrast may be obtained. RADIATION DOSE DELIVERED: 2,761.65mGy.cm Total DLP 2,761.65mGy.cm Total DLP DATA REPOSITORY: All CT scans at this facility are submitted to the National Radiology Data Registry (NRDR) Dose Index Registry (DIR) with the [employer] (ACR). RADIATION OPTIMIZATION: All CT scans at this facility use at least one of these dose optimization te chniques: automated exposure control; mA and/or kV adjustment per patient size (includes targeted exa ms where dose is matched to clinical indication); or iterative reconstruction.
--- NOTE | 2024-07-10 10:00 | DI.CT_ITS ---
Exam(s) CT CHEST W EXAM: CT CHEST W CLINICAL HISTORY: Breast pain, mass, hx cancer TECHNIQUE: Imaging Protocol: Axial computed tomography images with coronal and sagittal reformatted images were created and reviewed. Computer aided detection (CAD) was utilized. CONTRAST MATERIAL: Intravenous: Omnipaque 350Contrast volume:85 mL. COMPARISON: CT CT CHEST LUNG CANCER SCREEN from 12/16/[address] CHEST WO from 05/03/2024 FINDINGS: Tracheobronchial tree: Patent where visualized. No evidence of bronchiectasis. Pulmonary parenchyma: There is a 3 mm nodule in the anterior aspect of the left upper lobe. No focal consolidating infiltrates are seen. Mediastinum and Susan: No dominant adenopathy or fluid collection. The esophagus is unremarkable. Thyroid gland: Unremarkable. Pleura: No effusion or pneumothorax. Heart: The heart is not dilated. Mild coronary artery calcification is present. No pericardial effus ion. Aorta: Thoracic aorta non-dilated. Atherosclerotic calcification is present. No evidence of dissecti on. Pulmonary arteries: No pulmonary emboli are identified. Upper abdomen: Unremarkable. Lymph nodes: Within normal limits. Bones: Within normal limits for the patient's age. Soft tissues: There is infiltration of the left breast with thickening of the skin. Please correlate clinically. IMPRESSION: 1. No evidence of a pulmonary embolism, thoracic aortic dissection or aneurysm. 2. Infiltration of the left breast with thickening of the skin. The patient has a diagnosis of left breast carcinoma. These findings would be consistent with that diagnosis. 3. 3 mm nodule in the anterior aspect of the left upper lobe. RADIATION DOSE DELIVERED: 2,761.65mGy.cm Total DLP DATA REPOSITORY: All CT scans at this facility are submitted to the National Radiology Data Registry (NRDR) Dose Index Registry (DIR) with the [employer] (ACR). RADIATION OPTIMIZATION: All CT scans at this facility use at least one of these dose optimization te chniques: automated exposure control; mA and/or kV adjustment per patient size (includes targeted exa ms where dose is matched to clinical indication); or iterative reconstruction.
[2024-07-10 10:12] LABS: Bilirubin Negative (Negative); Blood Negative (Negative); Clarity Clear (Clear); Glucose Negative (Negative); Ketones Negative (Negative); Leukocyte Esterase Negative (Negative); Nitrite Negative (Negative); Urobilinogen 0.2 mg/dL (Up to 0.2)
[2024-07-10 10:17] LABS: Abs Immature Grans 0.03 10^3/uL (0.0-0.06); Absolute Basophil Count 0.05 10^3/uL (0.0-0.2); Absolute Monocyte Count 0.65 10^3/uL (0.1-0.8); Absolute Neutrophil Count 7.14 10^3/uL (1.2-6.7); Basophils % 0.5 %; HCT 43.3 % (36.0-46.0); HGB 14.2 g/dL (11.2-15.7); Immature Grans % 0.3 %; Lymphocytes % 16.9 %; MCH 30.3 pg (27.0-33.0); MCHC 32.8 % (32.0-36.0); MCV 93 fL (80-95); MPV 10.1 fL (8.0-11.0); Monocytes % 6.9 %; Neutrophils % 75.4 %; Platelet Count 280 10^3/uL (130-400); RBC 4.68 10^6/uL (3.93-5.22); RDW 12.5 % (11.7-14.6); RDW-SD 42.5 fL; WBC 9.47 10^3/uL (4.4-10.8)
[2024-07-10 10:18] LABS: ESR 36 mm/hr (0-30)
[2024-07-10] MEDS: Acetaminophen 500 MG TAB 1000 MG PO (10:23)
[2024-07-10] MEDS: MORPHine 10 MG/ML VIAL 2 MG IVP (10:24)
--- NOTE | 2024-07-10 10:25 | ED.GENADUL_ITS ---
Discharge Plan Disposition Patient Disposition: Home Condition: Stable Discharge Details Clinical Impression: Adenocarcinoma of left breast Primary Care Provider: Jarret Steward ED Provider: Hina Butler Home Meds and New Rx's Prescriptions: New morphine 15 mg tablet 15 mg PO Q6H PRNQty: 10 0RF No Action letrozole 2.5 mg tablet 2.5 mg PO DAILY Patient Comments: TAKE ONE TABLET BY MOUTH EVERY DAY metoprolol succinate 50 mg tablet extended release 24 hr 50 mg PO QHS Qty: 90 3RF Rx Instructions: Decreased dose gabapentin 800 mg tablet 800 mg PO QHS Qty: 90 3RF hydrochlorothiazide 12.5 mg tablet 12.5 mg PO DAILY Qty: 90 3RF fluoxetine 40 mg capsule 40 mg PO DAILY Qty: 90 3RF trazodone 50 mg tablet 25 mg PO HS PRN Qty: 45 3RF budesonide-formoterol [Symbicort] 160-4.5 mcg/actuation HFA aerosol inhaler 2 puff inhalation BID Qty: 10.2 12RF Spiriva Respimat 2.5 mcg/actuation mist 2 puff inhalation DAILY Qty: 4 12RF albuterol sulfate 90 mcg/actuation HFA aerosol inhaler See Rx Instructions .ROUTE .COMPLEX Qty: 17 3RF Dose Instruction: INHALE 2 PUFFS EVERY 6 HOURS NEEDED Rx Instructions: INHALE 2 PUFFS EVERY 6 HOURS NEEDED Inhaler, Assist Devices [Pocket Chamber] 1 ea miscellaneous DIRECTED Qty: 0 0RF Discharge Instructions Instructions: Breast Cancer (DC) Additional Instructions: You were seen in the emergency department today for evaluation of pain in your left breast and skin changes concerning for recurrence of your breast cancer. In our department you do full physical examination performed and had reassuring laboratory studies. You had a CT scan that did not show any metastases in your brain, but does show a mass in your breast concerning for recurrence or worsening of your cancer. I have provided you with a prescription for morphine to be used for the next few days to manage your pain, and you were referred to follow-up with the [facility] oncology team. Please follow-up with your primary care provider in the next few days to discuss this visit and any symptoms that change, worsen, or persist. Thank you for allowing us to be part of your care. Discharge Data Discharge Date/Time-TO BE ENTERED AT DEPARTURE: 07/10/24 13:54 HPI General Mode of arrival: ambulatory . Date/Time Provider Initiated Documentation: 07/10/24 09:26 . Limitations to Documentation: no limitations . Information obtained by: patient and old records reviewed . HPI Narrative: HPI: This is a 59-year-old female patient with a past medical history significant for left breast cancer, currently on hormonal therapies, history of hypertension, asthma, and chronic pain who is presenting for evaluation of breast changes. The patient reports that for the last month she has noted increase in size of her breast, firmness and changes in the skin texture, and increasing redness and pain. She has noted pain that extends into her left axilla, states that she has long struggled with pain and inflammation in these areas but the structural changes causing her concern. She completed radiation and chemotherapy last summer, follows Dr. Real. States that she has had intermittent fevers, has not noted any excessive nipple discharge, did have 1 episode of white discharge several days ago but has not been able to express any further. No wounds overlying skin, otherwise patient states that she has had several weeks of intermittent generalized headaches, no vision changes, reported weakness or numbness. Exam: Gen: Awake and alert, in no apparent distress HEENT: Non-icteric sclera, PERRL Neck: Supple Lungs: No apparent respiratory distress, normal respiratory effort. CV: Appears well perfused, strong distal pulses Breast: Breast examination performed under the supervision of ZEESHAN Chan, revealing extensive induration, mild redness, and tenderness of the left breast on the lateral hemisphere. No nipple discharge appreciated, small shotty lymphadenopathy appreciated in the left axilla. Abdomen: Non-distended MSK: Moves 4 extremities without apparent limitation in ROM Skin: Visualized skin without rashes, cyanosis. Neuro: Normal Gait, no obvious focal deficits or facial asymmetry. Speaks in full, clear sentences. Psych: Appropriate for situation. MDM: This is a 59-year-old female patient presenting for evaluation of skin changes, redness, and pain associated with a left breast mass. Differential includes but is not limited to recurrence of her breast cancer, I certainly considered infectious etiologies including cellulitis and abscess, the patient is reassuringly without active fever, and the duration of her symptoms would be less typical. Considered inflammatory changes secondary to cancer, as well as metastases, especially in her brain given her headaches. Finally, she has a well-documented history of postsurgical/radiation pain, which may be contributing to her symptoms. We will obtain laboratory studies to include CBC, CMP, magnesium, and obtain a CT of her head and chest with and without contrast. I also obtained in flammatory markers. I will provide the patient with a dose of Tylenol and morphine for symptomatic management. ED Course: I reviewed the patient's laboratory studies, which reveal no leukocytosis, anemia or thrombocytopenia. Chemistry panel without electrolyte derangements, evidence of kidney or liver dysfunction. Inflammatory markers are very slightly elevated but not impressively so, urinalysis noninfectious. CT imaging reviewed by myself, and I discussed the results with the radiologist. She does have what appears to be a malignant mass in the lateral aspect of her left breast with surrounding inflammatory changes, no evidence of discrete abscess or hematoma. She does not have any metastatic disease or other intracranial abnormalities. I spoke with Dr. Alvarado with [facility] oncology, who will ensure that the patient has outpatient follow-up for her recurrence of her breast cancer, and I provided the patient with a short course of morphine for her ongoing cancer pain. At this time, the patient has had a full medical evaluation and is safe for discharge to home. They are hemodynamically stable, ambulatory, and tolerating PO. They are understanding of the follow-up plan and return precautions. They left our facility without incident. Hina Butler MD Related Data Home Medications ?Medication ?Instructions ?Recorded ?Confirmed Inhaler, Assist Devices [Pocket 1 ea miscellaneous DIRECTED ##0 06/04/23 07/10/24 Chamber] albuterol sulfate 90 mcg/actuation See Rx Instructions .Route 02/16/24 07/10/24 aerosol inhaler .COMPLEX #17 grams fluoxetine 40 mg capsule 40 mg PO DAILY #90 tab-caps 02/26/24 07/10/24 gabapentin 800 mg tablet 800 mg PO QHS #90 tab-caps 02/26/24 07/10/24 hydrochlorothiazide 12.5 mg tablet 12.5 mg PO DAILY #90 tab-caps 02/26/24 07/10/24 letrozole 2.5 mg tablet 2.5 mg PO DAILY 02/26/24 07/10/24 metoprolol succinate 50 mg 50 mg PO QHS #90 tabs 02/26/24 07/10/24 tablet,extended release 24 hr trazodone 50 mg tablet 25 mg (1/2 x 50 mg) PO HS PRN #45 03/30/24 07/10/24 tab-caps budesonide-formoterol HFA 160 2 puff inhalation BID #10.2 grams 06/06/24 07/10/24 mcg-4.5 mcg/actuation aerosol inhaler (Symbicort) tiotropium bromide 2.5 2 puff inhalation DAILY #4 grams 06/06/24 07/10/24 mcg/actuation mist for inhalation (Spiriva Respimat) morphine 15 mg immediate release 15 mg PO Q6H PRN #10 tabs 07/10/24 tablet Previous Rx's ?Medication ?Instructions ?Recorded Inhaler, Assist Devices [Pocket 1 ea miscellaneous DIRECTED ##0 06/04/23 Chamber] albuterol sulfate 90 mcg/actuation See Rx Instructions .Route 02/16/24 aerosol inhaler .COMPLEX #17 grams fluoxetine 40 mg capsule 40 mg PO DAILY #90 tab-caps 02/26/24 gabapentin 800 mg tablet 800 mg PO QHS #90 tab-caps 02/26/24 hydrochlorothiazide 12.5 mg tablet 12.5 mg PO DAILY #90 tab-caps 02/26/24 metoprolol succinate 50 mg 50 mg PO QHS #90 tabs 02/26/24 tablet,extended release 24 hr trazodone 50 mg tablet 25 mg (1/2 x 50 mg) PO HS PRN #45 03/30/24 tab-caps budesonide-formoterol HFA 160 2 puff inhalation BID #10.2 grams 06/06/24 mcg-4.5 mcg/actuation aerosol inhaler (Symbicort) tiotropium bromide 2.5 2 puff inhalation DAILY #4 grams 06/06/24 mcg/actuation mist for inhalation (Spiriva Respimat) morphine 15 mg immediate release 15 mg PO Q6H PRN #10 tabs 07/10/24 tablet Allergies Allergy/AdvReac Type Severity Reaction Status Date / Time Penicillins Allergy Intermediate THROAT Verified 07/10/24 09:33 TIGHTNES iron AdvReac Nausea Verified 07/10/24 09:33 shellfish Allergy Severe Anaphylaxis Uncoded 07/10/24 09:33 General Stated Complaint: GenMedical IVETTE: 3 Course Vital Signs Vital signs: Vital Signs Temperature 36.5 C 07/10/24 09:26 Pulse 48 L 07/10/24 09:26 Respiratory Rate 15 07/10/24 09:26 Blood Pressure 149/83 H 07/10/24 09:26 Pulse Oximetry 96 07/10/24 09:26 Temperature 36.5 C 07/10/24 09:32 Temperature Source Oral 07/10/24 09:32 Pulse 48 L 07/10/24 09:32 Respiratory Rate 15 07/10/24 09:32 Respiratory Effort Normal 07/10/24 10:08 Blood Pressure 149/83 H 07/10/24 09:32 Blood Pressure Position Sitting 07/10/24 09:32 Pulse Oximetry 96 07/10/24 09:32 Oxygen Delivery Method Room Air 07/10/24 09:32 Oxygen Flow Rate 0 07/10/24 09:32 Pain Level 6 07/10/24 09:32 Lab/Test Results Lab/Test Results: Laboratory Tests Range/Units 07/10/24 07/10/24 10:00 10:10 WBC (4.4-10.8) 10^3/uL 9.47 RBC (3.93-5.22) 10^6/uL 4.68 Hgb (11.2-15.7) g/dL 14.2 Hct (36.0-46.0) % 43.3 MCV (80-95) fL 93 MCH (27.0-33.0) pg 30.3 MCHC (32.0-36.0) % 32.8 RDW (11.7-14.6) % 12.5 Plt Count (130-400) 10^3/uL 280 MPV (8.0-11.0) fL 10.1 Immature Gran % % 0.3 Neutrophils % % 75.4 Lymphocytes % % 16.9 Monocytes % % 6.9 Eosinophils % % 0.0 Basophils % % 0.5 Nucleated RBC % (0.0-0.3) % 0.0 Absolute Neutrophils (1.2-6.7) 10^3/uL 7.14 H Absolute Lymphocytes (1.2-3.4) 10^3/uL 1.60 Absolute Monocytes (0.1-0.8) 10^3/uL 0.65 Absolute Eosinophils (0.0-0.7) 10^3/uL 0.00 Absolute Basophils (0.0-0.2) 10^3/uL 0.05 ESR (0-30) mm/hr 36 H Urine Color (Yellow) Yellow Urine Clarity (Clear) Clear Urine pH (5-8) 6.0 Ur Specific [place] (1.005-1.025) 1.010 Urine Protein (Neg-Trace) mg/dL Negative Urine Ketones (Negative) mg/dL Negative Urine Blood (Negative) Negative Urine Nitrite (Negative) Negative Urine Bilirubin (Negative) Negative Urine Urobilinogen (Up to 0.2) mg/dL 0.2 Ur Leukocyte Esterase (Negative) Negative Urine Glucose (Negative) mg/dL Negative Medical Decision Making Quality:SDOH Health Related Social Needs: No Data to Display PFSH All Active Problems (Updated 07/10/24 @ 13:35 by Hina Butler MD) Dyspnea (Acute) Adenocarcinoma of left breast (Acute) Bradycardia (Acute) Vaginal atrophy (Chronic) Started Estridiol 11/2021 Insomnia disorder (Acute) Elevated fasting glucose (Acute) Encounter for smoking cessation counseling (Acute) Tubular adenoma of colon (Acute) Inflammatory polyps of colon (Acute) Hyperplastic colon polyp (Acute) Encounter for annual physical exam (Acute) Abnormal mammography (Acute) Status post breast biopsy (Chronic) MORRIS on CPAP (Chronic) Urine, incontinence, stress female (Chronic 10/23/14) Tubular adenoma (Acute) 01/05/15; DR. 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) Essential hypertension (Chronic 07/30/16) Chronic daily headache (Chronic 11/10/17) Cervical pain (neck) (Chronic 01/07/18) Asthma (Acute 07/09/12) Anxiety (Acute 10/20/13) Anisocoria (Acute 07/15/08) Medical History (Updated 07/10/24 @ 13:35 by Hina Butler MD) Excessive bleeding in premenopausal period (09/27/12) Uterine leiomyoma Migraine with aura and without status migrainosus, not intractable (11/10/17) Herpes zoster without complication (04/07/16) Obesity (BMI 30-39.9) Surgical History History of section Ligation of fallopian tube section X 2 EGD - MAC (01/05/15) DR.TERRY FERRARI Colonoscopy - MAC (01/05/15) DR.TERRY FERRARI Biopsy of breast Family History Mother , 72 Personal history of malignant neoplasm Cancer Father , 70 Diabetes Essential hypertension Heart disease Hyperlipidemia Stroke Colon cancer Substance abuse Sister Hypertension High cholesterol Brother Bone cancer Alcohol abuse Depression Hyperlipidemia Brother Asthma High cholesterol Hypertension Son Essential hypertension Depression Asthma High cholesterol Hypertension Substance abuse Daughter Essential hypertension Hypertension Brother Heart disease High cholesterol Hypertension Maternal Grandfather , 60 Stroke Hypertension High cholesterol Heart disease Paternal Grandfather , 80 Alcohol abuse High cholesterol Hypertension Maternal Grandmother , 80 High cholesterol Hypertension Paternal Grandmother , 80 High cholesterol Hypertension Social History Smoking/Tobacco Use Status: Current-Occasional Tobacco Type: cigarettes Tobacco: How many years used: 45 Quit status: has quit before Second Hand Exposure: Yes Smoking risk assessment performed?: Yes Alcohol Intake: never Counseling given: No Drug use: Never Substance use type: does not use Caregiver/Support person: No Household members: spouse Housing: house Communication Needs: None Do you need help understanding health information?: Rarely Pets and animals: Yes Pets and animals: cat(s) Sexually active: No Do you think of yourself as: straight/heterosexual Current gender identity: female What is your relationship status?: How often do you talk on the phone with friends or family?: once per week How often do you get together with friends or relatives?: decline to answer How often do you attend oriental orthodox or synagogue services?: decline to answer Do you belong to any clubs or organized social groups?: decline to answer Panel score (0-1 are the most socially isolated patients): 1 What type of physical activity do you participate in: walking Duration: 15-30 minutes/day Frequency: 1-2 times per week Balbina/Sabianism: No preference Special balbina needs: No Seatbelt use: always Drive intox or ride w/intox bus van driver: No Do you feel safe at home: Yes Do you feel safe in your relationship?: Yes
[2024-07-10 10:31] LABS: ALT 27 U/L (14-59); AST 20 U/L (15-37); Albumin 3.3 g/dL (3.4-5.0); Alkaline Phosphatase 105 U/L (46-116); Anion Gap 4.3 mmol/L (3-11); BUN 11 mg/dL (7-18); Bilirubin, Total 0.57 mg/dL (0.2-1.0); C-Reactive Protein 1.11 mg/dL (<or=0.5); CO2 30.7 mmol/L (21.0-32.0); CREATININE 0.7 mg/dL (0.55-1.02); Calcium 9.4 mg/dL (8.5-10.1); Chloride 103 mmol/L (98-107); Estimated GFR 98.34 (mL/min/1.73m2); Glucose 109 mg/dL (74-106); Magnesium 1.8 mg/dL (1.8-2.4); Sodium 138 mmol/L (136-145); Total Protein 7.6 g/dL (6.4-8.2)
[2024-07-10] MEDS: Omnipaque 350 MG/ML 100 ML BTL 85 ML IJ (11:23)
[2024-07-10] MEDS: Normal Saline - Diluent 50 ML VIAL IJ (11:24)
[2024-07-10] MEDS: MORPHine 4 MG/ML SYR IVP (11:36)
--- NOTE | 2024-07-10 11:46 | DI.VRAD_ITS ---
Addendum created by Janae Romero MD on 07/10/2024 11:48:56 AM EST: THIS REPORT CONTAINS FINDINGS THAT MAY BE CRITICAL TO PATIENT CARE. The findings were verbally communicated via telephone conference with Hina Butler at 11:48 AM EST on 07/10/2024. The findings were acknowledged and understood. Initial report created on 07/10/2024 11:46:31 AM EST: PROCEDURE INFORMATION: Exam: CT Chest With Contrast; Diagnostic Exam date and time: 07/10/2024 11:04 AM Age: 59 years old Clinical indication: Other: Breast pain, mass, HX cancer TECHNIQUE: Imaging protocol: Diagnostic computed tomography of the chest with contrast. 3D rendering (Not supervised by radiologist): MIP and/or 3D reconstructed images were created by the technologist. Contrast material: OMNIPAQUE 350; Contrast volume: 85 ml; Contrast route: INTRAVENOUS (IV); COMPARISON: CT CHEST WO 05/03/2024 8:02 AM FINDINGS: Lungs: Atelectasis in lingula Pleural spaces: Unremarkable. No pneumothorax. No pleural effusion. Heart: Unremarkable. No cardiomegaly. No pericardial effusion. Lymph nodes: Unremarkable. No enlarged lymph nodes. Vasculature: No evidence of pulmonary embolus to the segmental level. No aneurysm of the aorta. No dissection of the aorta. Bones/joints: Unremarkable. No acute fracture. Soft tissues: The left breast is inflamed. There is thickening of the skin in the left breast. Findings consistent with left breast carcinoma. IMPRESSION: 1. The left breast is inflamed. There is thickening of the skin in the left breast. Findings consistent with left breast carcinoma. 2. No evidence of pulmonary embolus to the segmental level. 3. No aneurysm of the aorta. 4. No dissection of the aorta. Dictated and Authenticated by: Janae Romero MD. Orderin [facility] Santamaria MD
--- NOTE | 2024-07-10 11:50 | DI.VRAD_ITS ---
PROCEDURE INFORMATION: Exam: CT Head With Contrast Exam date and time: 07/10/2024 11:04 AM Age: 59 years old Clinical indication: Other: Breast CA, complaining of MCKNIGHT, eval mets TECHNIQUE: Imaging protocol: Computed tomography of the head with intravenous contrast. Contrast material: OMNIPAQUE 350; Contrast volume: 85 ml; Contrast route: INTRAVENOUS (IV); COMPARISON: CR XR cervical spine comp 4-5V 05/24/2018 8:21 AM FINDINGS: Brain: No acute intracranial hemorrhage.. There is mild diffuse heterogeneity of the white matter attenuation, consistent with chronic white matter ischemic changes. Mild cerebral atrophy Cerebral ventricles: Unremarkable. No ventriculomegaly. Bones/joints: Unremarkable. No acute fracture. Paranasal sinuses: Visualized sinuses are unremarkable. No fluid levels. Mastoid air cells: Visualized mastoid air cells are well aerated. Soft tissues: Unremarkable. IMPRESSION: No acute intracranial hemorrhage.. Dictated and Authenticated by: Janae Romero MD. Orderin [facility] Santamaria MD
[2024-07-10] MEDS: Ketorolac 15 MG/ML VIAL IVP (12:57)
[2024-07-10] MEDS: MORPHine IR 15 MG TAB, 4 TABS/BTL PO (13:50)
== END 2024-07-10 13:54 | disposition home or self-care (01) ==
PROVIDERS: Emergency Provider Emergency Medicine; PCP Nurse Practitioner Family
DX: N64.4 Mastodynia (principal); C50.912 Malignant neoplasm of unspecified site of left female breast; I10 Essential (primary) hypertension; F17.210 Nicotine dependence, cigarettes, uncomplicated; Z92.3 Personal history of irradiation; Z92.21 Personal history of antineoplastic chemotherapy
CPT/HCPCS: 36415; 80053; 85652; 96374; 96375; 96376; 99285; 70470; 71260; 81003; 83735; 85025; 86140; J1885; J2270; J3490

== ENCOUNTER 2024-08-30 01:55 | Outpatient (CLI) | payer MEDICAID, SELFPAY ==
--- NOTE | 2024-08-30 12:53 | DI.RAD_ITS ---
Exam(s) XR CERVICAL SPINE COMP 4-5V EXAM: XR CERVICAL SPINE COMP 4-5V CLINICAL HISTORY: worsening radiculopathy,cervical spine,m54.2,m54.10. TECHNIQUE: 2D digital imaging was performed. COMPARISON: No exams were available for comparison FINDINGS: Seven views No evidence of acute fracture nor significant listhesis. No offset of the spinal laminar line There is, however, advanced multilevel chronic degenerative disc disease involving all levels at and below C3-4 with significant disc space narrowing and anterior osteophytes at these levels. There is also multilevel facet arthropathy and fusion across the facet joints at C2-3 level. Oblique views re veal small multilevel bilateral Luschka joint osteophytes. There are no cervical ribs. No osseous l esions. IMPRESSION: Advanced chronic multilevel degenerative disc disease and degenerative changes. No acute fractures. DATA REPOSITORY: RADIATION DOSE DELIVERED:
== END 2024-08-30 02:15 ==
LOC: DI 01:55
PROVIDERS: PCP Nurse Practitioner Family; Visit Provider Nurse Practitioner Family
DX: M50.021 Cervical disc disorder at C4-C5 level with myelopathy (principal)
CPT/HCPCS: 72050

== ENCOUNTER 2024-09-20 00:15 | Outpatient (CLI) | payer MEDICAID, SELFPAY ==
--- NOTE | 2024-09-20 07:45 | DI.MRI_ITS ---
Exam(s) MR CERVICAL SPINE WO EXAM: MR CERVICAL SPINE WO CLINICAL HISTORY: CERVICAL PAIN,RADICULOPATHY,M54.2,M54.10 TECHNIQUE: Multiplanar multisequence MRI of the cervical spine was performed without intravenous con trast. COMPARISON: CR XR CERVICAL SPINE COMP 4-5V from 08/30/2024 FINDINGS: BONES: Vertebral body heights are maintained. There is straightening of the normal cervical lordosis secondary to extensive degenerative changes. The bone marrow signal intensity is within normal limi ts. CERVICAL CORD: Craniovertebral junction is unremarkable. The cervical cord is normal size and signal intensity. SOFT TISSUES: Unremarkable. C2-3: No disc herniation or bulge is identified. No evidence of neural foraminal narrowing. No signi ficant central canal stenosis. C3-4: Severe loss of disc height. Prominent endplate osteophytes projecting mainly anteriorly. No c entral canal stenosis. Severe right and moderate left neural foraminal narrowing.. C4-5: Severe loss of disc height. Prominent endplate osteophytes. Facet degenerative changes. Mild narrowing of the AP dimension of the central canal. There is some CSF present posteriorly. Severe bilateral neural foraminal narrowing. C5-6: Severe loss of disc height and endplate osteophytes. Facet degenerative changes. Narrowing of the AP dimension of the central canal with the basement of the CSF space. Severe bilateral neural f oraminal narrowing.. C6-7: Moderate loss of disc height. Small endplate osteophytes. No central canal stenosis. Mild ri ght and severe left neural foraminal narrowing. C7-T1: The disc height is maintained. No disc herniation or bulge is identified. No evidence of neur al foraminal narrowing. No significant central canal stenosis. IMPRESSION: Degenerative disc changes and facet degenerative changes, greatest at C4-5 and C5-6 where there is mi ld central canal stenosis and severe bilateral neural foraminal narrowing.. DATA REPOSITORY:
== END 2024-09-20 00:35 ==
PROVIDERS: PCP Nurse Practitioner Family; Visit Provider Nurse Practitioner Family
DX: M50.321 Other cervical disc degeneration at C4-C5 level (principal)
CPT/HCPCS: 72141

== ENCOUNTER 2025-03-01 17:42 | Outpatient (REF) | payer MEDICAID, SELFPAY ==
--- NOTE | 2025-03-01 10:45 | SKI_PTH ---
PATIENT: Yaz Michel LOC: [facility] U#:[id number] AGE/SX: 59/F ROOM: RE03/01/[address]: Jarret Cantu DNP : 1965 BED: DIS: 03/01/2025 SPEC #: [id number] RECD: 03/01/25 18:16 STATUS: HENRY REQ #: [id number] ANDRES: 03/01/25 10:[address]: Jarret Steward DEPT: Surgical Specimen RECD BY: Cinthia Hair Tissues: 1 - SKIN BIOPSY(SHAVE/PUNCH) 2 - SKIN BIOPSY(SHAVE/PUNCH) Procedures: SKIN LEVEL 4 Comments: [id number]
== END 2025-03-01 17:43 | disposition home or self-care (01) ==
LOC: LBN 17:42
PROVIDERS: PCP Nurse Practitioner Family; Visit Provider Nurse Practitioner Family
DX: L81.4 Other melanin hyperpigmentation (principal); L83 Acanthosis nigricans; A66.3 Hyperkeratosis of yaws
CPT/HCPCS: 88305

== ENCOUNTER 2025-03-23 12:51 | Outpatient (RCR) | payer MEDICAID, SELFPAY ==
--- NOTE | 2025-03-28 09:12 | W.HOLTRPT ---
Date of service: 03/28/25 Time of Service: 09:12 Holter Monitor Report Referring Provider:: Jarret Bañuelos Indications:: Chest pain, bradycardia Holter Monitor Note: This is a 48-hour Holter monitor Rhythm throughout was sinus with an average heart rate of 62. Minimum was 32, maximum 102 There were occasional ventricular ectopic beats There were very rare isolated atrial premature beats. Several self-limited atrial runs occurred. These were generally less than 10 beats in duration and asymptomatic There was no atrial fibrillation, no high-grade AV block, no pauses greater than 3 seconds No symptoms were reported
== END 2025-04-16 23:59 | disposition home or self-care (01) ==
LOC: CARDOPNVT 12:51
PROVIDERS: PCP Nurse Practitioner Family; Visit Provider Nurse Practitioner Family
DX: R07.9 Chest pain, unspecified (principal); R00.1 Bradycardia, unspecified; I49.1 Atrial premature depolarization
CPT/HCPCS: 93225; 93226

== ENCOUNTER → 2025-03-30 02:38 | Outpatient (CLI) | payer MEDICAID, SELFPAY ==
--- NOTE | 2025-03-30 07:08 | DI.NM_ITS ---
APPROVED REPORT Exam: Pharmacologic Patient Location: Out-Patient Room/Bed: Stress Nurse: Letitia Shepherd RN Ordering Provider:VIDA FITCHBrody CARRASCO, Contact Number: [phone] BMI: 34.95 Baseline Rhythm: Sinus Bradycardia Comment: Occasional PVC's Indications: Left sided chest pain Medical History Medical History: Insomnia, MORRIS on CPAP, SVT, smoker, fibromyalgia, HTN, anxiety, chronic daily headache, obesity, migraines, herpes zoster Cardiac Medications: Albuterol sulfate, anastrozole, symbicort Allergies: Penicillins, iron, shellfish Cardiac Risk Factors: Family hx, HTN, HLD, asthma, HLD, smoker, obesity Previous Cardiac Procedures: None Pretest Chest Pain Characteristics: None Exercise History: Indeterminate Physical Disabilities: Knee knee, hx LBBB Lung Sounds: Clear to auscultation Heart Sounds: Bradycardia Stress Test Details Test: Pharmacologic stress was paired with low level exercise. Reason for pharmacologic stress test: physical limitation. Nuclear Acquisition: Rest Tc-99m/Stress Tc-99m 1 day Rest Isotope: Tc-99m Sestamibi. Dose: 10.0 Date: 03/30/2025 Injection Time: 0845 Stress Isotope: Tc-99m Sestamibi. Dose: 30.0 Date: 03/30/2025 Injection Time: 1043 HR Resting HR Supine: 50 bpm Max Heart Rate (APMHR): 158 bpm Resting HR Standin bpm Target HR (85% APMHR): 134 bpm Max HR Achieved: 104 bpm % of APMHR: 66 Recovery HR: 65 bpm BP Resting BP Supine: 140/80 mmHg Resting BP Standin/88 mmHg Max BP: 160/88 mmHg Recovery BP: 144/84 mmHg ECG Resting ECG: Sinus Bradycardia, LBBB Ectopy: Occasional PVC's, rare PAC's Stress ECG: Sinus Tachycardia, LBBB ST Change: Nondiagnostic low heart rate, Horizontal ST depression Downsloping ST depression Lead(s): , inferior leads, V6 Maximum ST Deviation: 1-3 mm Recovery ECG: Sinus Rhythm, LBBB Recovery ST Change: Nondiagnostic low heart rate, Downsloping ST depression, Horizontal ST depression Lead(s): inferior leads, V6 Recovery Arrhythmia: Occasional PVC's Comment: ST depression returned to baseline by test end Clinical Stress Symptoms: Mod SOB Angina Score: None Rate Pressure Product: 17052 Stress ECG Conclusion 1. Resting electrocardiogram showed a left bundle branch block 2. Patient underwent testing using a combination of pharmacologic stress and regadenoson 3. Electrocardiographic portion of the test was nondiagnostic 4. See MPI report Stress Test Summary STAGE HR BP SpO2 Symptoms NOTES Supine 50 140/80 92% Standing 57 160/88 1 min post Lexiscan injection 75 150/80 96% 3 min post Lexiscan injection 65 144/82 96% 6 min post Lexiscan injection 65 144/84 93% Walking angélica performed r/t hx LBBB and knee limitations. Patient c/o mod SOB s/p angélica injection which resolved at end of test. Patient proceeded to imaging ambulatory in no apparent distress. MPI Conclusion Myocardial perfusion is normal. There is no ischemia or evidence of prior infarction Calculated EF is 45%. Visually it appears within normal limits, normal wall motion
[2025-03-30] MEDS: Regadenoson 0.4 MG/5 ML SYR IVP (10:53)
== END ==
LOC: DI 02:38
PROVIDERS: PCP Nurse Practitioner Family; Visit Provider Nurse Practitioner Family
DX: R07.9 Chest pain, unspecified (principal)
CPT/HCPCS: 78452; 93017; J2785